=== PATIENT | female | born 1940 | race Caucasian/White ===

== ENCOUNTER 2022-01-18 14:19 | Outpatient (REF) | payer MEDICARE, OTHER, SELFPAY ==
--- NOTE | ~2022-01-18 | MM_ITS ---
EXAMINATION: BONE DENSITOMETRY CLINICAL INDICATION: Encounter for screening for osteoporosis. Postmenopausal. COMPARISON: None (current study represents initial baseline exam). TECHNIQUE: Using a [employer] DXA System (software version: 13.1) manufactured by [employer], dual-energy x-ray absorptiometry was performed of the lumbar spine and left hip. The images are of good technical quality. Summary results are attached. FINDINGS: AP SPINE L1-L4 (excluding L3): The data of L1-L4 has been changed to exclude the L3 vertebral body, because degenerative changes at this level may cause overestimation of lumbar spine density. BMD 1.924 g/cm2, Z-score 7.5, T-score 6.3, normal. LEFT FEMUR, NECK: BMD 1.085 g/cm2, Z-score 2.2, T-score 0.3, normal. LEFT FEMUR, TOTAL: BMD 1.196 g/cm2, Z-score 3.2, T-score 1.5, normal. IDENTIFIED RISK FACTORS: History of fracture, (adult). Menopause. Tobacco user, (current smoker). HISTORY OF FRACTURE: Elbow. MEDICATIONS: None listed. MM/XR DEXA axial skeleton IMPRESSION: 1. DIAGNOSIS: Normal bone density based on the lowest T-score value of 0.3 in the femoral neck applying World Health Organization criteria. 2. 10-YEAR FRACTURE RISK PREDICTION, FRAX: According to the guidelines, FRAX calculation should only be performed on patients in the osteopenia bone density category. Therefore, FRAX was not performed on this patient. 3. Treatment Recommendations: NOF guidelines recommend consideration for treatment in postmenopausal women and men age 50 and older presenting with the following: -A hip or vertebral (clinical or morphometric) fracture. -T-score less than or equal to -2.5 at the femoral neck or spine after appropriate evaluation to exclude secondary causes. -Low bone mass at the hip or spine and a 10-year fracture probability by FRAX of greater than or equal to 3% for hip fracture or greater than or equal to 20% for major osteoporotic fracture based on the [place] adapted WHO algorithm. 4. Other Recommendations: All treatment decisions require clinical judgment and consideration of individual patient factors, including patient preferences, comorbidities, previous drug use, risk factors not captured in the FRAX model (e.g. frailty, falls, vitamin D deficiency, increased bone turnover, interval significant decline in bone density) and possible under or overestimation of fracture risk by FRAX. FUTURE SCAN RECOMMENDATION: People with diagnosed cases of osteoporosis or at high risk for fracture should have regular bone mineral density tests. For patients eligible for Medicare, routine testing is allowed once every 2 years. The testing frequency can be increased to one year for patients who have rapidly progressing disease, those who are receiving or discontinuing medical therapy to restore bone mass, or have additional risk factors.
== END 2022-01-18 14:20 | disposition home or self-care (01) ==
LOC: HO.MAMMO 14:19
PROVIDERS: PCP Nurse Practitioner Family; Visit Provider Nurse Practitioner Family
DX: Z13.820 Encounter for screening for osteoporosis (principal); N92.1 Excessive and frequent menstruation with irregular cycle; Z78.0 Asymptomatic menopausal state; F17.200 Nicotine dependence, unspecified, uncomplicated
CPT/HCPCS: 77080

== ENCOUNTER 2022-03-07 11:17 | Outpatient (REF) | payer MEDICARE, OTHER, SELFPAY ==
--- NOTE | ~2022-03-07 | XR_ITS ---
EXAMINATION: XR KNEE, LEFT CLINICAL INFORMATION: Pain left knee. No known injury. COMPARISON: None. TECHNIQUE: 4 views of the left knee. FINDINGS: There is loss of medial and patellofemoral compartment joint space with periarticular spurring. There is no visible acute fracture, dislocation or subluxation seen. No abnormal joint effusion seen. Incidental finding of diffuse thickening involving the medial cortex of fibula. This could be from stress fracture or cortical hyperostosis.. XR/XR knee LT 2V IMPRESSION: Mild degenerative arthritic changes medial and patellofemoral compartments with periarticular spurring. No acute fracture or joint effusion seen. Nonspecific observation of diffuse thickening of medial fibular cortex throughout its entire length question stress fracture versus hyperostosis.
== END 2022-03-07 11:18 | disposition home or self-care (01) ==
LOC: HO.XRAY 11:17
PROVIDERS: PCP Nurse Practitioner Family; Visit Provider Nurse Practitioner Family
DX: M25.562 Pain in left knee (principal)
CPT/HCPCS: 73560

== ENCOUNTER 2022-03-30 08:03 | Outpatient (REF) | payer MEDICARE, OTHER, SELFPAY ==
--- NOTE | ~2022-03-30 | XR_ITS ---
EXAMINATION: XR KNEES, BILATERAL XR KNEE, LEFT CLINICAL INFORMATION: Pain COMPARISON: 03/07/2022. TECHNIQUE: Standing image of the knees and detailed imaging of the left knee 2 views. FINDINGS: The standing image of the knees demonstrates medial compartment joint space loss on the right and left. Appears moderate. Marginal osteophytes are noted. The lateral joint spaces are fairly well preserved. Tibial spine spurring is seen. Imaging of the left knee shows patellofemoral spurring. No significant effusion is present. The patella Is fairly well seated on the sunrise image. XR/XR knee LT 2V IMPRESSION: Degenerative changes [id number] left knee. There is also some degeneration on the right on the standing image.
--- NOTE | ~2022-03-30 | XR_ITS ---
EXAMINATION: XR KNEES, BILATERAL XR KNEE, LEFT CLINICAL INFORMATION: Pain COMPARISON: 03/07/2022. TECHNIQUE: Standing image of the knees and detailed imaging of the left knee 2 views. FINDINGS: The standing image of the knees demonstrates medial compartment joint space loss on the right and left. Appears moderate. Marginal osteophytes are noted. The lateral joint spaces are fairly well preserved. Tibial spine spurring is seen. Imaging of the left knee shows patellofemoral spurring. No significant effusion is present. The patella Is fairly well seated on the sunrise image. XR/XR knee standing BI IMPRESSION: Degenerative changes [id number] left knee. There is also some degeneration on the right on the standing image.
== END 2022-03-30 08:04 | disposition home or self-care (01) ==
LOC: HO.HOSX 08:03
PROVIDERS: Visit Provider Orthopaedic Surgery
DX: M17.12 Unilateral primary osteoarthritis, left knee (principal)
CPT/HCPCS: 73560; 73565; 99202

== ENCOUNTER 2022-04-10 07:30 | Outpatient (REF) | payer MEDICARE, OTHER, SELFPAY ==
[2022-04-10 08:56] LABS: MANUAL DIFF FLAG NO
[2022-04-10 09:10] LABS: Basophils Percent Auto 0.4 % (0-2); Eosinophils Absolute Auto 0.3 X10*3/uL (0.0-0.4); Eosinophils Percent Auto 4.3 % (0-4); Hematocrit 40.6 % (37.0-47.0); Hemoglobin 12.9 g/dl (12.0-16.0); Imm Gran Abs Auto 0.04 X10*3/uL (0.00-0.03); Imm Gran Pct Auto 0.5 % (0.0-0.4); Lymphocytes Absolute Auto 3.2 X10*3/uL (1.2-4.9); Lymphocytes Percent Auto 40.7 % (20-40); Mean Corpuscular HGB Conc 31.8 g/dl (31.0-35.0); Mean Corpuscular Hemoglobin 28.1 pg (27.0-33.0); Mean Corpuscular Volume 88.5 fL (80.0-98.0); Mean Platelet Volume 10.6 fL (9.4-12.3); Monocytes Absolute Auto 0.7 X10*3/uL (0.1-1.2); Monocytes Percent Auto 8.4 % (2-11); Neutrophils Absolute Auto 3.6 x10*3/uL (2.0-8.3); Neutrophils Percent Auto 45.7 % (45-73); Platelet Count 232 X10*3/uL (160-400); Red Blood Count 4.59 X10*6/uL (4.20-5.50); Red Cell Distribution Width 14.4 % (11.0-16.0); White Blood Count 7.8 X10*3/uL (4.8-10.8)
[2022-04-10 09:38] LABS: Alanine Aminotransferase 17 U/L (0-31); Albumin Level 3.9 g/dL (3.5-5.0); Alkaline Phosphatase 41 U/L (39-117); Anion Gap 12 (12-20); Aspartate Amino Transferase 17 U/L (5-31); Bilirubin Total 0.5 mg/dL (0.0-1.0); Blood Urea Nitrogen 15 mg/dL (9-16); Calcium 8.9 mg/dL (8.4-10.2); Carbon Dioxide 26 mmol/L (22-29); Chloride 108 mmol/L (96-108); Cholesterol 199 mg/dL; Estimated Glomerular Filt Rate > 60; Glucose Random 115 mg/dL (60-115); HDL Cholesterol 44 mg/dL; LDL Cholesterol Calculated 119 mg/dl; Potassium 4.1 mmol/L (3.3-5.1); Sodium 142 mmol/L (135-145); Triglycerides 180 mg/dL
[2022-04-10 09:59] LABS: Vitamin D 25-OH Total 19.2 ng/mL (>30)
[2022-04-10 11:04] LABS: Estimated Average Glucose 131 mg/dL; Hemoglobin A1c % 6.2 %
[2022-04-10 11:18] LABS: Creatinine Urine 105.46 mg/dL; Microalbum/Creatinine Ratio Ur 24.6 ug/mg cr
[2022-04-10 11:19] LABS: Folate 12.5 ng/mL (> or = 4.0); Vitamin B12 259 pg/mL (200-900)
== END 2022-04-10 07:31 | disposition home or self-care (01) ==
LOC: HO.LAB 07:30
PROVIDERS: Nurse Practitioner Family; Visit Provider Nurse Practitioner Family
DX: Z13.29 Encounter for screening for other suspected endocrine disorder (principal); E11.9 Type 2 diabetes mellitus without complications; I10 Essential (primary) hypertension; Z13.220 Encounter for screening for lipoid disorders
CPT/HCPCS: 36415; 80053; 80061; 82043; 82306; 82607; 82746; 83036; 84443; 85025

== ENCOUNTER 2022-05-16 22:45 | Emergency (ER) | payer MEDICARE, OTHER, SELFPAY ==
--- NOTE | ~2022-05-16 | XR_ITS ---
EXAMINATION: XR KNEE, LEFT CLINICAL INFORMATION: Pain status post fall COMPARISON: Bilateral knee 03/24/2022 TECHNIQUE: Four views of the left knee. FINDINGS: Mild tricompartmental degenerative changes are seen with narrowing of the medial compartment. Posterior patellar osteophytes are seen. No joint effusion is seen. No fractures. No chondrocalcinosis. XR/XR knee LT 4V IMPRESSION: Mild tricompartmental degenerative changes
[2022-05-16 22:52] VITALS: BP 158/90; PULSE 75; O2SAT 99
[2022-05-16 22:55] VITALS: BP 171/74; PULSE 70; RESP 18; TEMP 36.8; O2SAT 93; BMI 30.2
--- NOTE | 2022-05-16 22:55 | ED_ITS ---
HPI - Extremity Injury (Lower) General Chief Complaint: Extremity Injury, Lower Stated Complaint: left leg pain after fall Time Seen by Provider: 05/16/22 22:55 Source: patient Mode of arrival: EMS Limitations: no limitations History of Present Illness HPI Narrative: Patient accidentally kicked a water bottle instead of soccer ball at approximately 15:00 today with her right foot fell on her buttocks to state her left knee complaining of pain in the left knee unable to put pressure or walk. Patient does have chronic pain in the knees Related Data Home Medications Medication Instructions Recorded Confirmed betamethasone, augmented 0.05 % topical 12/02/21 04/05/22 topical ointment vitamins A,C,H-sqgi-vjicbo 14,320 1 cap PO BID 12/02/21 04/05/22 unit-226 mg-200 unit capsule (PreserVision AREDS) Previous Rx's Medication Instructions Recorded albuterol sulfate 90 mcg/actuation 2 inh inhalation Q4-6H #8.5 grams 03/07/22 aerosol inhaler lisinopril 5 mg tablet 5 mg PO DAILY #90 tabs 03/07/22 metformin 500 mg tablet 500 mg PO BID 90 days #180 tabs 03/07/22 cholecalciferol (vitamin D3) 50 50 mcg PO DAILY #90 tabs 04/11/22 mcg (2,000 unit) tablet ibuprofen 600 mg tablet 600 mg PO Q6H PRN pain #30 tabs 05/17/22 Allergies Allergy/AdvReac Type Severity Reaction Status Date / Time codeine Allergy Hallucinati Verified 05/16/22 23:01 ons meperidine [From Demerol] Allergy Hallucinati Verified 05/16/22 23:01 ons Iodinated Contrast Media AdvReac Anxiety Verified 05/16/22 23:01 [IV Contrast Dye] Review of Systems Review of Systems: Yes all other systems are reviewed and are negative [facility] Past Medical History Medical History Chondroma COVID-19 virus infection (~03/15/22) Encounter to establish care Surgical History History of cataract surgery History of cholecystectomy History of eye surgery Social History Social History Housing: Assisted Living Facility Patient Tobacco Use Status: Current everyday Tobacco user Tobacco use type: Cigarette Cigarettes Per Day: 3 e-Cigarette/Vaping Use: Never Used Second Hand Smoke Exposure: No Advance Directives: No Advance Directives Information Provided: No service: No Current occupational status: retired Cognitive needs: No Hearing needs: Yes ( having trouble hearing) Vision needs: Yes Physical Exam Vital Signs: Vital Signs: Last Vital Signs Temp 98.2 F 05/16/22 22:55 Pulse 70 05/16/22 22:55 Resp 18 05/16/22 22:55 BP 171/74 H 05/16/22 22:55 Pulse Ox 93 05/16/22 22:55 O2 Del Method 05/16/22 22:55 BMI result Body Mass Index 30.2 Appearance: Alert. Oriented X3. No acute distress. Eyes: PERRLA, No Nystagmus ENT: Pharynx normal. Oral Mucosa moist Neck: Normal inspection. Neck supple. CVS: Normal heart rate and rhythm. Pulses normal. Respiratory: No respiratory distress. Equal air entry bilateral, no wheezing/rales/rhonchi Abdomen: Soft and nontender. Bowel sounds are present, Skin: Skin warm and dry. Normal skin color. Normal skin turgor. Extremities: No lower extremity edema. No calf tenderness diffuse tenderness le ft knee with slight effusion neurovascular intact Audrey sign positive left lateral meniscal anterior drawer sign negative Neuro: Oriented X 3. No motor deficit. No sensory deficit. MDM - Extremity Injury (Lower) MDM Narrative Medical decision making narrative: 0040 Patient with likely left lateral meniscal strain able to ambulate after knee immobilizer using crutches will discharge patient home advised to rest left knee follow-up with orthopedic Discharge Plan Discharge Clinical Impression: Acute lateral meniscal injury of left knee Patient Disposition: Home, Self-Care Instructions: Knee Sprain (ED) Additional Instructions: Use knee immobilizer for support use walker or cane for ambulation Ibuprofen for pain Follow-up with orthopedics if not better in 2 weeks Prescriptions: New ibuprofen 600 mg tablet 600 mg PO Q6H PRN (Reason: pain) Qty: 30 0RF No Action cholecalciferol (vitamin D3) 50 mcg (2,000 unit) tablet 50 mcg PO DAILY Qty: 90 0RF albuterol sulfate 90 mcg/actuation HFA aerosol inhaler 2 inh inhalation Q4-6H Qty: 8.5 2RF lisinopril 5 mg tablet 5 mg PO DAILY Qty: 90 0RF metformin 500 mg tablet 500 mg PO BID 90 Days Qty: 180 0RF PreserVision AREDS [id number]-[id number] capsule 1 cap PO BID betamethasone, augmented 0.05 % ointment topical Referrals: Natanael Coronel MD [Physician] - 2 weeks Interventions: ED Discharge Assessment Last Done: 05/17/22 00:28
== END 2022-05-17 00:44 | disposition home or self-care (01) ==
PROVIDERS: Emergency Provider Internal Medicine; PCP Nurse Practitioner Family
DX: S83.282A Other tear of lateral meniscus, current injury, left knee, initial encounter (principal); Y29.XXXA Contact with blunt object, undetermined intent, initial encounter; Y93.9 Activity, unspecified; Y92.9 Unspecified place or not applicable; Y99.9 Unspecified external cause status; Z79.899 Other long term (current) drug therapy; F17.210 Nicotine dependence, cigarettes, uncomplicated; Z71.6 Tobacco abuse counseling
CPT/HCPCS: 73564; 99282; 99283

== ENCOUNTER → 2022-06-07 10:36 | Outpatient (BNVA) | payer MEDICARE, OTHER, SELFPAY | PROVIDERS: PCP Nurse Practitioner Family; Visit Provider Physician Assistant | DX: M17.12 Unilateral primary osteoarthritis, left knee (principal) | CPT/HCPCS: 20610; 99212; J1020 ==

== ENCOUNTER 2022-07-11 13:00 | Outpatient (RCR) | payer MEDICARE, OTHER, SELFPAY ==
[2022-06-16 13:06] VITALS: BP 131/61; PULSE 89
--- NOTE | 2022-06-16 13:59 | MHC.PT.EP ---
[facility] [place] Office [place] Office [place] Office [address] [phone] F: [phone] F: [phone] F: [phone] F: [phone] Physical Therapy Plan of Care Date of Evaluation: Date of Surgery: NA Diagnosis: Unilateral primary OA, L knee Assessment: Nicky is a 82 year old female who is referred to PT for unilateral primary OA of L knee . She reports of having sudden onset of knee pain about 3 months back following a sudden pop in her knee. She was initially diagnosed with knee OA and was given a brace. She was making good progress until 1 month back when she fell on her L knee and re-injured it 2 weeks back while trying push a heavy table. On PT examination she presented with TTP over lateral aspect of distal hamstring, 1/10 pain with sit to stand and pivoting L knee, decreased L knee ROM, decreased L LE strength, altered posture and gait. She is independent with ADLS however is careful with them to avoid any pain or re-injury. She enjoys swimming as well. She would benefit from skilled PT to address the aforementioned impairments and improve tolerance to functional activities. Frequency and Duration: The patient will be seen 2/week for 4 weeks Short Term Goals: 1. Pt will have 0/10 which will help her walk, sit to stand and stand without brace in 2 weeks. 2. Pt will be able to move her knee through full plane of motion without pain which will help her negotiate stairs in 3 weeks. Cadastral Engineer Goals: 1. Pt will demonstrate an increase in muscle strength by 1 grade which will enable her to return to walking without AD in 4 weeks. 2. Pt will be independent with HEP for symptom management and maintenance following d/c in 4 weeks. Treatment Plan: Modalities to reduce pain, spasms and effusion. Manual therapy to restore motion and function. Therapeutic exercise to improve strength and flexibility. Neuromuscular re-education for posture and balance. Therapeutic activities to return to functional activities of daily living. Electronically signed by: Martha Martinez PT DPT Please sign and return to therapist. Thank you for your referral.
--- NOTE | 2022-07-17 10:09 | MHC.PT.DC ---
[facility] [place] Office [place] Office [place] Office [address] [phone] F: [phone] F: [phone] F: [phone] F: [phone] Physical Therapy Discharge Report Diagnosis: Unilateral primary OA, L knee Date of Surgery: NA Date of Evaluation: 06/16/22 Date of Discharge: 07/17/22 Treatments to Date: 9 Cancellations to Date: 0 No Shows to Date: 0 Discharge Status: Achieved Goals Improved Function Independent with HEP Discharge Summary: Nicky has attended 9 PT visits. She has improved significantly and has achieved all goals set for her. She is therefore being d/c from PT. Electronically signed by: Martha Martinez, PT DPT Please sign and return to therapist. Thank you for your referral.
== END 2022-07-17 10:08 | disposition home or self-care (01) ==
LOC: HO.PT 13:00
PROVIDERS: PCP Nurse Practitioner Family; Visit Provider Physician Assistant
DX: M17.12 Unilateral primary osteoarthritis, left knee (principal)
CPT/HCPCS: 97110; 97161; 97530

== ENCOUNTER 2023-08-02 10:31 | Outpatient (AMB) | payer MEDICARE, OTHER, SELFPAY ==
--- NOTE | 2023-08-02 10:24 | A.OFFVIS_ITS ---
Intake Vital Signs 08/02/23 10:35 Height 5 ft 5 in Weight 190 lb BMI 31.6 Intake Visit Reasons: new Prob- Right knee pain Intake Note: Nicky is an 83 year old female who presents today for a new problem visit with complaints of right knee pain. Patient reports that this knee has been painful for about 8 weeks now. She reports that she was mopping the floor and has had pain the knee ever since. No previous therapies. She is taking Tylenol which does help mildly, but she only takes it at night. She has been using a rollator at home as she feels that it is helpful for her balance. Allergies codeine Allergy (Verified 08/02/23 10:39) Hallucinations meperidine [From Demerol] Allergy (Verified 08/02/23 10:39) Hallucinations Iodinated Contrast Media [IV Contrast Dye] Adverse Reaction (Verified 08/02/23 10:39) Anxiety HPI new Prob- Right knee pain HPI Details Nicky Eden)is an 83 year old woman with bilateral knee OA, who presents with complaints of right knee pain. She has pain with daily activity that radiates from her knee and into her leg muscles, along with a clicking and pulling sensation. She denies any numbness, tingling, or burning. She says her pain began ~2 months ago while she was mopping her floor, she says she pivoted on her heel and this caused her pain. She denies any prior treatment for her right knee and finds some relief from Tylenol, which she takes only at night. She has been using a walker at home and says this has been helpful for her balance. [facility] Medical History COVID-19 virus infection (~03/15/22) Chondroma Encounter to establish care Surgical History History of cataract surgery History of eye surgery History of cholecystectomy Social History Housing: Assisted Living Facility Patient Tobacco Use Status: Current everyday Tobacco user Tobacco use type: Cigarette Cigarettes Per Day: 3 e-Cigarette/Vaping Use: Never Used Second Hand Smoke Exposure: No service: No Current occupational status: retired Cognitive needs: No Hearing needs: Yes ( having trouble hearing) Vision needs: Yes Review of Systems Const All systems reviewed & are unremarkable except as noted in HPI and below Physical Exam Vital Signs: BMI result Body Mass Index 31.6 Const General: no acute distress, alert and awake Orientation/consciousness: patient oriented x3 HEENT Head: Yes normocephalic and Yes atraumatic Eyes EOM: EOMs intact bilaterally Resp Effort & Inspection: normal respiratory effort and able to speak in complete sentences Cardio Jugular venous distension: no JVD Skin General skin exam: turgor normal Rashes: no rashes Neuro General: patient oriented x3 Extrem Other: Right Knee: Antalgic gait TTP MJA bilaterally Psych Appearance: grossly normal Affect: normal affect Attitude: cooperative Office Procedures Joint Injection/Drain Joint Injection/Drain Details: Injected 1 mL of Decadron and 3 mL 1% lidocaine and 3 mL of 0.25% Marcaine. Site was prepped using aseptic technique. Patient tolerated the procedure well. Primary Site: right knee Approach Used: anterolateral Coding 14771 - Large joint Procedure code (CPT) selection complete Results Reviewed Results Reviewed: 08/02/23 10:51 BUPivacaine MPF 0.25 % [Sensorcaine-MPF 0.25% 10 ML] 10 ml .ROUTE .STK-MED ONE Lidocaine HCl 2 % MPF [Xylocaine 2 % MPF] 5 ml .ROUTE .STK-MED ONE dexAMETHasone sod phosphate [Decadron] 4 mg .ROUTE .STK-MED ONE I personally reviewed relevant radiographs. Moderate-severe bilateral knee OA Assessment & Plan Assessment & Plan (1) Osteoarthritis of right knee: Code(s): M17.11 - Unilateral primary osteoarthritis, right knee Plan: This is an 83 year old woman with right knee mod-severe OA. She has pain with daily activity, and ambulates with antalgia. Her pain radiates into her leg but she denies any symptoms of radiculopathy. She denies any prior treatment and ambulates with an assistive walker at home. I discussed her diagnosis and treatment options. I injected her right knee today, which she tolerated well. She can follow up prn. (2) Diabetes mellitus: Code(s): E11.9 - Type 2 diabetes mellitus without complications Plan: I discussed the hyperglycemic effects of steroid injections (3) Degenerative arthritis of left knee: Code(s): M17.12 - Unilateral primary osteoarthritis, left knee Plan: No complaints today. Plan Scribed for Natanael Coronel MD by Pascual Almendarez, spanish medical interpreter, on 08/02/23 at 10:50 AM, EST. Coding Level of Care Code Est Pt Level 4 (02465) Diagnoses Osteoarthritis of right knee M17.11 Diabetes mellitus E11.9 Degenerative arthritis of left knee M17.12 CPT Codes Coding - 93031 Large joint: 37223 - Large joint ([id number])
[2023-08-02 10:35] VITALS: BMI 31.6
== END 2023-08-02 11:05 | disposition home or self-care (01) ==
PROVIDERS: PCP Nurse Practitioner Family; Visit Provider Orthopaedic Surgery
DX: M17.0 Bilateral primary osteoarthritis of knee (principal); E11.9 Type 2 diabetes mellitus without complications
CPT/HCPCS: 20610; 99214

== ENCOUNTER → 2023-08-02 10:31 | Outpatient (BNVA) | payer MEDICARE, OTHER, SELFPAY | PROVIDERS: PCP Nurse Practitioner Family; Visit Provider Orthopaedic Surgery | DX: M17.0 Bilateral primary osteoarthritis of knee (principal); E11.9 Type 2 diabetes mellitus without complications | CPT/HCPCS: 20610; 99212; J1100 ==

== ENCOUNTER 2023-08-24 11:04 | Outpatient (AMB) | payer MEDICARE, OTHER, SELFPAY ==
[2023-08-24 10:54] VITALS: BP 142/70; PULSE 85; O2SAT 95; BMI 31.3
--- NOTE | 2023-08-24 10:54 | AM.OFFVISMDC ---
Intake Vital Signs 08/24/23 10:54 Height 5 ft 5 in Weight 188 lb 0.6 oz BMI 31.3 BP 142/70 H Blood Pressure Location Lt brachial Position Sitting Pulse 85 Pulse Source Pulse Oximeter Pulse Oximetry (%) 95 Oxygen Delivery Method Room Air Intake Visit Reasons: SAWV Intake Note: Patient is here for an Annual Wellness Visit. Allergies codeine Allergy (Verified 08/24/23 11:33) Hallucinations meperidine [From Demerol] Allergy (Verified 08/24/23 11:33) Hallucinations Iodinated Contrast Media [IV Contrast Dye] Adverse Reaction (Verified 08/24/23 11:33) Anxiety Medication List - Last Reconciled 08/24/23 by ALVARO Márquez albuterol sulfate 90 mcg/actuation 2 inhalations inhalation Q4-6H betamethasone, augmented 0.05 % topical blood sugar diagnostic ([employer] Ultra Test strips) 2x day cane Quad cane lisinopril 5 mg PO DAILY metformin 500 mg PO BID 90 days Fall Risk Assessment Fall risk assessment: No Falls in past year Date Fall Risk Assessed: 08/24/23 HPI SAWV HPI Details Patient is an 83-year-old female who presents today for subsequent wellness visit. Patient did have a normal bone density screen 01/2022. Today we discussed patient's need for mammogram and tetanus vaccine. Patient would like to hold off on tetanus vaccine. Patient reports history of pneumonia vaccine after age 65. [place] of care was reviewed with the patient and she was provided with a screening schedule. MOLST form is on file and patient will provide office with a healthcare proxy form. [facility]MERLY [facility] Medical History COVID-19 virus infection (~03/15/22) Chondroma Encounter to establish care Surgical History History of cataract surgery History of eye surgery History of cholecystectomy Social History Housing: Assisted Living Facility Patient Tobacco Use Status: Current everyday Tobacco user Tobacco use type: Cigarette Cigarettes Per Day: 3 e-Cigarette/Vaping Use: Never Used Second Hand Smoke Exposure: No service: No Current occupational status: retired Cognitive needs: No Hearing needs: Yes ( having trouble hearing) Vision needs: Yes Questionnaire Medicare Wellness Checkup What is your age?: 80 or older (82) What gender do you identify with?: female During the past 4 weeks, how much have you been bothered by emotional problems such as feeling anxious, depressed, irritable, sad or downhearted, and blue?: slightly During the past 4 weeks, has your physical & emotional health limited your social activities with family, friends, neighbors, or groups?: not at all During the past 4 weeks, how much bodily pain have you generally had?: mild pain During the past 4 weeks, was someone available to help you if you needed & wanted help?: yes, as much as I wanted During the past 4 weeks, what was the hardest physical activity you could do for at least 2 minutes?: heavy Can you get to places out of walking distance without help? (For eg., can you travel alone on buses, taxis or drive your car?): Yes Can you go shopping for groceries or clothes without someone's help?: Yes Can you prepare your own meals?: Yes Can you do your housework without help?: Yes Because of any health problems, do you need the help of another person with your personal care needs such as eating, bathing, dressing or getting around the house?: No Can you handle your own money without help?: Yes During the past 4 weeks, how would you rate your health in general?: good During the past 4 weeks how have things been going for you?: good & bad parts about equal Are you having difficulties driving your car?: no Do you always fasten your seat belt when you are in a car?: yes, usually During past 4 weeks, have you been bothered by the following: never: Falling or dizzy when standing up, Sexual problems?, Trouble eating well?, Teeth or denture problems? and Problems using the telephone? and sometimes: Tiredness or fatigue? Have you fallen 2 or more times in the past year?: No Are you afraid of falling?: Yes Are you a smoker?: yes, and I might quit During the past 4 weeks, how many drinks of wine, beer, or other alcoholic beverages did you have?: 2-5 drinks per week Do you exercise for about 20 minutes 3 or more times a week?: yes, some of the time Have you been given information to help with the following?: no: Hazards in your house that might hurt you? and no: Keeping track of your medications? How often do you have trouble taking medicines the way you have been told to take them?: I always take medicine as prescribed How confident are you that you can control & manage most of your health problems?: very confident What is your race?: White Mini Mental State Exam (MMSE) Orientation What is the (year) (season) (date) (day) (month)?: year, season, date, day and month Score Score: 5 Activity of Daily Living Bathing - sponge bath, tub bath or shower: receives no assistance (gets in/out by self, if usual bathing means Dressing - getting clothes from closets & drawers, including inner/outer garments & fasteners.: gets clothes & gets completely dressed without help Toileting - going to the 'toilet room' for urine/bowel elimination & cleaning self/arranging clothes: goes to toilet room, cleans self, arranges clothes without help Transfer: moves in & out of bed and chair without help (may use support object) Continence: controls urination/bowel movements completely by self Feeding: feeds self without help Total Score: 0 Information obtained from: patient Using telephone: independent Traveling: independent Shopping: independent Preparing meals: independent Housework: independent Taking medicine: independent Managing money: independent PHQ-9 Over the last 2 weeks, how often have you been bothered by any of the following problems? 1. Little interest or pleasure in doing things: not at all 2. Feeling down, depressed, or hopeless: not at all 3. Trouble falling or staying asleep, or sleeping too much: several days 4. Feeling tired or having little energy: several days 5. Poor appetite or overeating: not at all 6. Feeling bad about yourself - or that you are a failure or have let yourself or your family down: not at all 7. Trouble concentrating on things, such as reading the newspaper or watching television: not at all 8. Moving or speaking so slowly that other people could have noticed. Or the opposite - being so fidgety or restless that you have been moving around a lot more than usual: not at all 9. Thoughts that you would be better off or of hurting yourself in some way: not at all Total score: 2 Depression Screening Interpretation: Negative Depression Screening Done: Yes 87643 - PHQ-9 Billing: Yes Source: Developed by Drs. Trip Schneider, Claudia Hernandez, Dante Milan and colleagues, with an educational mohamud from [employer]. MELINDA-7 AMB Questionnaire MELINDA-7 Date MELINDA - 7 assessed: 12/20/22 Source: Developed by Claudia Montoya, Dante Milan and colleagues, with an educational mohamud from [employer]. Thrive Questionnaire Date Thrive assessed: 12/20/22 AUDIT C Alcohol Use Questionnaire (AUDIT-C) 1. How often do you have a drink containing alcohol?: Monthly or less 2. How many drinks containing alcohol do you have on a typical day when you are drinking?: 1 or 2 3. How often do you have six or more drinks on one occasion?: Never Total Score: 1 Score Reviewed/Action Taken: No Physical Exam Vital Signs: Last Vital Signs Pulse 85 08/24/23 10:54 BP 142/70 H 08/24/23 10:54 Pulse Ox 95 08/24/23 10:54 Oxygen Delivery Method Room Air 08/24/23 10:54 BMI result Body Mass Index 31.3 Const General: cooperative and no acute distress Orientation/consciousness: patient oriented x3 HEENT Other: Whisper test: fail Neuro Other: Balance: Normal - patient ambulates with a cane Get up and walk: unable to Romberg: negative Tandem gait: unable to General: patient oriented x3 Results AMB Hemoglobin A1c AMB Hemoglobin A1c 6.2 % Last Edit by HILARIA Zavala on 08/24/23 11:22 Results Reviewed Results Reviewed: Laboratory Last Values Hgb A1c (Clinic) 6.2 % (4.0-6.0) H 08/24/23 11:17 Assessment & Plan Assessment & Plan (1) Hyperlipidemia: Code(s): E78.5 - Hyperlipidemia, unspecified Plan: Not on medication - patient reports history of being on statin in the past and she did have muscle aches LDL 117 04/2023, goal less than 110, declines starting medication for cholesterol Low-cholesterol diet Continue to monitor (2) Screening for breast cancer: Code(s): Z12.39 - Encounter for other screening for malignant neoplasm of breast (3) Degenerative arthritis of left knee: Code(s): M17.12 - Unilateral primary osteoarthritis, left knee Plan: Continue to follow-up with [facility] (4) Psoriasis: Code(s): L40.9 - Psoriasis, unspecified Plan: Continue betamethasone cream (5) IBS (irritable bowel syndrome): Comment: controlled with diet Code(s): K58.9 - Irritable bowel syndrome without diarrhea Plan: Controlled with diet (6) Intermittent asthma: Code(s): J45.20 - Mild intermittent asthma, uncomplicated Plan: Stable Continue albuterol inhaler as needed (7) Diabetes mellitus: Code(s): E11.9 - Type 2 diabetes mellitus without complications Plan: A1c 6.2 today Continue metformin 500 mg b.i.d. Low-carbohydrate diet Scheduled for diabetic eye exam 09/2023 (8) Macular degeneration of right eye: Comment: getting shots q6-[address] Mazariegos [facility] Code(s): H35.30 - Unspecified macular degeneration Plan: Continue to follow-up with ophthalmology as scheduled (9) Essential hypertension: Code(s): I10 - Essential (primary) hypertension Plan: Continue lisinopril 5 mg daily Low-sodium diet Goal BP equal or less than 140/90 (10) Adult general medical exam: Comment: Td declined. PNA Iz after age 65 per pt. Code(s): Z00.00 - Encounter for general adult medical examination without abnormal findings Orders: Orders AMB Hemoglobin A1c Today E11.9 - Type 2 diabetes mellitus without complications MM tomosynthesis screening BI Today Z12.31 - Encounter for screening mammogram for malignant neoplasm of breast Microalbumin, Random (w Creat) 4 Months E11.9 - Type 2 diabetes mellitus without complications Lipid Panel 4 Months E11.9 - Type 2 diabetes mellitus without complications Comprehensive [place]. Panel Fast 4 Months E11.9 - Type 2 diabetes mellitus without complications Medications: Changed From betamethasone, augmented 0.05 % topical L40.9 - Psoriasis, unspecified To betamethasone, augmented 0.05 % 1 appl topical DAILY PRN 15 grams 0RF rash L40.9 - Psoriasis, unspecified Quality Reporting (2019) Fall Risk Screening ([facility] 139) Last assessed Fall Risk: 08/24/23 Fall risk assessment: No Falls in past year Depression/Bipolar (159/160/161/177) PHQ-9: Total score: 2 Coding Level of Care Code Medicare Subsequent (G0439) Diagnoses Hyperlipidemia E78.5 Screening for breast cancer Z12.39 Degenerative arthritis of left knee M17.12 Psoriasis L40.9 IBS (irritable bowel syndrome) K58.9 Intermittent asthma J45.20 Diabetes mellitus E11.9 Macular degeneration of right eye H35.30 Essential hypertension I10 Adult general medical exam Z00.00 CPT Codes Advance Care Planning - Advance Care Planning discussion: On file, no changes ([id number]) Advance Care Planning - Time spent: 1-15 minutes, on File ([id number]) Advance Care Planning Advance Care Planning discussion: On file, no changes Date of discussion: 08/24/23 Who was present: pt and faculty criminal justice Forms completed: None Time spent: 1-15 minutes, on File Actual minutes spent: 1 Did not discuss due to Cultural/Spiritual beliefs: No
== END 2023-08-24 11:51 | disposition home or self-care (01) ==
PROVIDERS: PCP Nurse Practitioner Family; Visit Provider Nurse Practitioner Family
DX: Z00.00 Encounter for general adult medical examination without abnormal findings (principal); E11.9 Type 2 diabetes mellitus without complications; E78.5 Hyperlipidemia, unspecified; M17.12 Unilateral primary osteoarthritis, left knee; L40.9 Psoriasis, unspecified; K58.9 Irritable bowel syndrome, unspecified; J45.20 Mild intermittent asthma, uncomplicated; H35.30 Unspecified macular degeneration; I10 Essential (primary) hypertension
CPT/HCPCS: 1123F; 83036; G0439

== ENCOUNTER → 2023-09-12 14:15 | Outpatient (BNV) | payer MEDICARE, OTHER, SELFPAY | PROVIDERS: Visit Provider Radiology Diagnostic Radiology | DX: Z12.31 Encounter for screening mammogram for malignant neoplasm of breast (principal) | CPT/HCPCS: 77063; 77067 ==

== ENCOUNTER 2023-09-12 14:27 | Outpatient (REF) | payer MEDICARE, OTHER, SELFPAY ==
--- NOTE | ~2023-09-12 | MM_ITS ---
EXAMINATION: MM SCREENING DIGITAL BREAST TOMOSYNTHESIS, BILATERAL CLINICAL INFORMATION: Screening. Asymptomatic. COMPARISON: Mammography: This study is compared with prior exams dating back to TECHNIQUE: Digital breast tomosynthesis is performed in both the craniocaudal and mediolateral oblique views along with computer-aided detection (CAD). Synthesized 2D images are generated from the tomosynthesis. FINDINGS: The breasts are almost entirely fatty (ACR BI-RADS breast composition Category a). There are no significant masses, abnormal calcifications, or other abnormalities. MM/MM tomosynthesis screening BI IMPRESSION: No mammographic evidence of malignancy. ASSESSMENT: BI-RADS BI-RADS 1 - Negative RECOMMENDATION: Routine annual mammography screening. 1 year F/U This examination should not preclude the clinical evaluation of a suspicious palpable abnormality. This patient's information was entered into a reminder system with a target due date for their next mammogram.
== END 2023-09-12 14:28 | disposition home or self-care (01) ==
LOC: HO.MAMMO 14:27
PROVIDERS: Visit Provider Nurse Practitioner Family
DX: Z12.31 Encounter for screening mammogram for malignant neoplasm of breast (principal)
CPT/HCPCS: 77063; 77067

== ENCOUNTER 2023-12-25 09:47 | Outpatient (AMB) | payer MEDICARE, OTHER, SELFPAY ==
[2023-12-25 09:50] VITALS: BP 132/70; PULSE 80; O2SAT 95; BMI 32.1
--- NOTE | 2023-12-25 09:50 | A.OFFPC_ITS ---
Vital Signs 12/25/23 09:50 Height 5 ft 5 in Weight 193 lb BMI 32.1 BP 132/70 Blood Pressure Location Lt brachial Position Sitting Pulse 80 Pulse Source Pulse Oximeter Pulse Oximetry (%) 95 Oxygen Delivery Method Room Air Intake Visit Reasons: F/u DM, HLD Tattoo And Body Artist Required: No Sharepoint Manager: Not Required per policy Accompanied by: Self / Same As Patient Allergies codeine Allergy (Verified 12/25/23 09:51) Hallucinations meperidine [From Demerol] Allergy (Verified 12/25/23 09:51) Hallucinations Iodinated Contrast Media [IV Contrast Dye] Adverse Reaction (Verified 12/25/23 09:51) Anxiety Medication List - Last Reconciled 12/25/23 by Tee Estrella MD albuterol sulfate 90 mcg/actuation 2 inhalations inhalation Q4-6H betamethasone, augmented 0.05 % 1 appl topical DAILY PRN blood sugar diagnostic ([employer] Ultra Test strips) 2x day cane Quad cane lisinopril 5 mg PO DAILY metformin 500 mg PO BID 90 days Tobacco use date assessed: 12/25/23 Fall risk assessment: No Falls in past year Last assessed Fall Risk: 12/25/23 Dental Screening Dental Screen Date: 12/25/23 Did you have a dental visit in the last 12 months?: Yes Did you have a dental problem in the last 6 months where you did not have access to dental care?: No Was dental information given to patient?: Patient has dentist HPI F/u DM, HLD HPI Details DM HTN and hyperlipidemia; stable; due for labs [facility] Medical History COVID-19 virus infection (~03/15/22) Chondroma Encounter to establish care Surgical History History of cataract surgery History of eye surgery History of cholecystectomy Social History Housing: Assisted Living Facility Patient Tobacco Use Status: Former Tobacco user Tobacco use type: Cigarette Cigarettes Per Day: 3 e-Cigarette/Vaping Use: Never Used Second Hand Smoke Exposure: No service: No Current occupational status: retired Cognitive needs: No Hearing needs: Yes ( having trouble hearing) Vision needs: Yes Questionnaire PHQ-9 Over the last 2 weeks, how often have you been bothered by any of the following problems? 1. Little interest or pleasure in doing things: not at all 2. Feeling down, depressed, or hopeless: not at all 3. Trouble falling or staying asleep, or sleeping too much: not at all 4. Feeling tired or having little energy: not at all 5. Poor appetite or overeating: not at all 6. Feeling bad about yourself - or that you are a failure or have let yourself or your family down: not at all 7. Trouble concentrating on things, such as reading the newspaper or watching television: not at all 8. Moving or speaking so slowly that other people could have noticed. Or the opposite - being so fidgety or restless that you have been moving around a lot more than usual: not at all 9. Thoughts that you would be better off or of hurting yourself in some way: not at all Total score: 0 Depression Screening Interpretation: Negative Depression Screening Done: Yes 09893 - PHQ-9 Billing: Yes Source: Developed by Drs. Trip Schneider, Claudia Hernandez, Dante Milan and colleagues, with an educational mohamud from [employer]. Thrive Questionnaire Date Thrive assessed: 12/25/23 I am a: Patient What is your living situation today?: I have a steady place to live Within the past 12 months, did the food you bought not last and you didn't have the money to get more?: Never true Within the past 12 months, did you worry whether your food would run out before you got money to buy more?: Never true Do you have trouble paying for medicines?: No Do you have trouble getting transportation to medical appointments?: No Do you have trouble paying your heating and electricity bill?: No Do you have trouble taking care of your child, family member or friend?: No Are you currently unemployed and looking for a job?: No Are you interested in more education?: No Please select the resources that you would like help with: None THRIVE Score: 0 AUDIT C Alcohol Use Questionnaire (AUDIT-C) 1. How often do you have a drink containing alcohol?: Monthly or less 2. How many drinks containing alcohol do you have on a typical day when you are drinking?: 1 or 2 3. How often do you have six or more drinks on one occasion?: Never Total Score: 1 Score Reviewed/Action Taken: No MELINDA-7 AMB Questionnaire MELINDA-7 Date MELINDA - 7 assessed: 12/25/23 Feeling nervous, anxious, or on edge: 0 = Not at all Not being able to stop or control worryin = Not at all Worrying too much about different things: 0 = Not at all Trouble relaxin = Not at all Being so restless that it is hard to sit still: 0 = Not at all Becoming easily annoyed or irritable: 0 = Not at all Feeling afraid as if something awful might happen: 0 = Not at all Total MELINDA-7 score (0-4 normal; 5-9 mild; 10-14 moderate; 15-21 severe): 0 Source: Developed by Drs. Trip Schneider, Claudia Hernandez, Dante Milan and colleagues, with an educational mohamud from [employer]. MELINDA-7 Assessment Billing MELINDA-7 Assessment Tool: MELINDA-7 Assessment 59889 Review of Systems Const Denies chills, Denies fatigue, Denies headache(s) and Denies weight loss Eyes Denies change in vision, Denies diplopia and Denies eye pain ENT Denies vertigo, Denies dizziness, Denies headache(s) and Denies nasal discharge Card Denies chest pain, Denies rapid heart rate and Denies dyspnea on exertion Resp Denies chest congestion, Denies cough, Denies pain with cough and Denies dyspnea on exertion GI Denies abdominal pain, Denies hematochezia and Denies change in bowel habits Musc Denies myalgias, Denies arthralgias and Denies joint swelling Skin/Breast Denies lesions and Denies unusual bruising Neuro Denies vertigo, Denies dizziness, Denies headache(s) and Denies focal weakness Endo Denies fatigue Physical exam (Primary Care) Vital Signs: Last Vital Signs Pulse 80 12/25/23 09:50 BP 132/70 12/25/23 09:50 Pulse Ox 95 12/25/23 09:50 Oxygen Delivery Method Room Air 12/25/23 09:50 BMI result Body Mass Index 32.1 Tobacco/Smoking Status: Tobacco use Status Tobacco use date assessed 12/25/23 12/25/23 09:52 Patient Tobacco Use Status Former Tobacco user 12/25/23 10:03 Tobacco use type Cigarette 12/25/23 09:52 e-Cigarette/Vaping Use Never Used 12/25/23 09:52 PHQ-9: PHQ-9 Score PHQ-9: Total score 0 12/25/23 10:06 Depression Screening Interpretation: Negative Thrive Assessment: Date of Thrive Assessment Date Thrive assessed 12/25/23 12/25/23 09:52 Const General: cooperative, healthy appearing and no acute distress Orientation/consciousness: oriented to person, oriented to place and oriented to time HENMT Head: Yes normal to inspection, Yes normocephalic and Yes atraumatic Mouth: Normal oral and palatal mucosa present and tongue normal Throat: Yes posterior oropharynx normal and Yes uvula midline Eyes General: appearance normal, both eyes and all related structures Neck Neck: Yes normal visual inspection, Yes full ROM and Yes no lymphadenopathy Thyroid: Thyroid normal Carotids: normal carotid upstroke Chest Chest palpation & inspection: normal inspection of the chest Resp Effort & Inspection: normal respiratory effort and able to speak in complete sentences Auscultation: clear to auscultation bilaterally Cardio Jugular venous distension: no JVD Palpation: normal PMI Rate: regular rate Rhythm: regular rhythm Heart sounds: S1 normal heart sound present and S2 normal heart sound present GI Inspection: Yes normal to inspection Palpation (GI): Soft to palpation and No hepatosplenomegaly present Auscultation: normal bowel sounds General: Yes no CVA tenderness Back/Spine/Pelvis Back: no CVA tenderness Skin General skin exam: no rashes or lesions noted Neuro General: oriented to person, oriented to place and oriented to time Extrem General: Yes normal to inspection and Yes full ROM Results AMB Hemoglobin A1c AMB Hemoglobin A1c 6.9 % Last Edit by HILARIA Iqbal on 12/25/23 10:06 Results Reviewed Results Reviewed: Laboratory Last Values Hgb A1c (Clinic) 6.9 % (4.0-6.0) H 12/25/23 09:52 Assessment and Plan Assessment & Plan (1) Diabetes mellitus: Code(s): E11.9 - Type 2 diabetes mellitus without complications Plan: do labs (2) Hyperlipidemia: Code(s): E78.5 - Hyperlipidemia, unspecified Plan: do labs (3) Essential hypertension: Code(s): I10 - Essential (primary) hypertension Plan: stable; same rx Orders: Orders Complete Blood Count Auto Diff Today D64.9 - Anemia, unspecified Hemoglobin A1c Today R73.9 - Hyperglycemia, unspecified AMB Hemoglobin A1c Today E11.9 - Type 2 diabetes mellitus without complications Coding Level of Care Code Est Pt Level 4 (13211) Diagnoses Diabetes mellitus E11.9 Hyperlipidemia E78.5 Essential hypertension I10 Additional Codes MELINDA-7 Assessment Billing - MELINDA-7 Assessment Tool: MELINDA-7 Assessment 51631 ([id number])
== END 2023-12-25 10:25 | disposition home or self-care (01) ==
PROVIDERS: PCP Internal Medicine; Visit Provider Internal Medicine
DX: E11.69 Type 2 diabetes mellitus with other specified complication (principal); E78.5 Hyperlipidemia, unspecified; I10 Essential (primary) hypertension
CPT/HCPCS: 83036; 99214

== ENCOUNTER 2024-01-31 09:45 | Outpatient (AMB) | payer MEDICARE, OTHER, SELFPAY ==
[2024-01-31 09:51] VITALS: BP 120/80; PULSE 96; O2SAT 99; BMI 32.4
--- NOTE | 2024-01-31 09:51 | MHC.PC.OV ---
Vital Signs 01/31/24 09:51 Height 5 ft 5 in Weight 195 lb BMI 32.4 BP 120/80 Blood Pressure Location Lt brachial Position Sitting Pulse 96 Pulse Source Pulse Oximeter Pulse Oximetry (%) 99 Oxygen Delivery Method Room Air Intake Visit Reasons: left foot swelling Internet Site Designer Required: No Account Specialist: Not Required per policy Accompanied by: Self / Same As Patient Allergies codeine Allergy (Verified 01/31/24 09:51) Hallucinations meperidine [From Demerol] Allergy (Verified 01/31/24 09:51) Hallucinations Iodinated Contrast Media [IV Contrast Dye] Adverse Reaction (Verified 01/31/24 09:51) Anxiety Medication List - Last Reconciled 01/31/24 by Tee Estrella MD albuterol sulfate 90 mcg/actuation 2 inhalations inhalation Q4-6H betamethasone, augmented 0.05 % 1 appl topical DAILY PRN blood sugar diagnostic (GFRANQ Ultra Test strips) 2x day cane Quad cane lisinopril 5 mg PO DAILY metformin 500 mg PO BID 90 days Tobacco use date assessed: 12/25/23 Fall risk assessment: No Falls in past year Last assessed Fall Risk: 01/31/24 Dental Screening Dental Screen Date: 01/31/24 Did you have a dental visit in the last 12 months?: Yes Did you have a dental problem in the last 6 months where you did not have access to dental care?: No Was dental information given to patient?: Patient has dentist HPI left foot swelling HPI Details has 1 week swelling left lower leg and ankle pain PFSH Medical History COVID-19 virus infection (~03/15/22) Chondroma Encounter to establish care Surgical History History of cataract surgery History of eye surgery History of cholecystectomy Social History Housing: Assisted Living Facility Patient Tobacco Use Status: Former Tobacco user Tobacco use type: Cigarette Cigarettes Per Day: 3 e-Cigarette/Vaping Use: Never Used Second Hand Smoke Exposure: No service: No Current occupational status: retired Cognitive needs: No Hearing needs: Yes ( having trouble hearing) Vision needs: Yes Questionnaire Thrive Questionnaire Date Thrive assessed: 12/25/23 MELINDA-7 AMB Questionnaire MELINDA-7 Date MELINDA - 7 assessed: 12/25/23 Source: Developed by Drs. Trip Schneider, Claudia Hernandez, Dante Milan and colleagues, with an educational mohamud from [employer]. Review of Systems Const Denies chills, Denies headache(s) and Denies weight loss ENT Denies headache(s) Card Denies chest pain, Denies syncope, Denies irregular heart rhythm and Denies dyspnea Resp Denies chest congestion, Denies cough and Denies dyspnea GI Denies abdominal pain, Denies change in stool character, Denies nausea and Denies vomiting Musc Denies deformity and Denies joint swelling Neuro Denies syncope and Denies headache(s) Physical exam (Primary Care) Vital Signs: Last Vital Signs Pulse 96 01/31/24 09:51 BP 120/80 01/31/24 09:51 Pulse Ox 99 01/31/24 09:51 Oxygen Delivery Method Room Air 01/31/24 09:51 BMI result Body Mass Index 32.4 Tobacco/Smoking Status: Tobacco use Status Tobacco use date assessed 12/25/23 01/31/24 09:53 Patient Tobacco Use Status Former Tobacco user 01/31/24 09:53 Tobacco use type Cigarette 01/31/24 09:53 e-Cigarette/Vaping Use Never Used 01/31/24 09:53 Thrive Assessment: Date of Thrive Assessment Date Thrive assessed 12/25/23 01/31/24 09:53 Const General: cooperative, comfortable, no acute distress and alert Neck Neck: Yes no lymphadenopathy Thyroid: Thyroid normal Resp Effort & Inspection: normal respiratory effort Auscultation: clear to auscultation bilaterally Percussion: percussion normal Cardio Jugular venous distension: no JVD Palpation: normal PMI Rate: regular rate Rhythm: regular rhythm Heart sounds: S1 normal heart sound present and S2 normal heart sound present GI Inspection: Yes normal to inspection Palpation (GI): No hepatosplenomegaly present Skin General skin exam: no rashes or lesions noted Extrem Other: left lower leg 3+ edema Assessment and Plan Assessment & Plan (1) Leg edema, left: Code(s): R60.0 - Localized edema Plan: US labs and xr Orders: Orders US venous duplex LE LT Today R60.0 - Localized edema XR ankle LT 2V Today M25.579 - Pain in unspecified ankle and joints of unspecified foot Uric Acid Today M10.9 - Gout, unspecified Coding Level of Care Code Est Pt Level 3 (47055) Diagnoses Leg edema, left R60.0
== END 2024-01-31 10:18 | disposition home or self-care (01) ==
PROVIDERS: PCP Internal Medicine; Visit Provider Internal Medicine
DX: R60.0 Localized edema (principal)
CPT/HCPCS: 99213

== ENCOUNTER 2024-01-31 10:59 | Outpatient (REF) | payer MEDICARE, OTHER, SELFPAY ==
--- NOTE | ~2024-01-31 | US_ITS ---
EXAMINATION: US VENOUS ULTRASOUND WITH DOPPLER LOWER EXTREMITY, LEFT CLINICAL INFORMATION: Left lower extremity edema COMPARISON: None available. TECHNIQUE: Ultrasound of the deep veins is performed from the hip to the calf with compression sonography and color and pulse Doppler assessment. Spectral analysis with color-flow imaging is performed. FINDINGS: There is normal venous compression and respiratory variation and augmented flow. The visualized common femoral vein, superficial femoral vein, profunda femoral vein, popliteal vein, and the trifurcation region shows no evidence of deep venous thrombosis. There is a 5.0 x 1.4 x 4.3 cm Anthony's cyst present . A prominent 2.4 x 0.7 x 0.8 cm left groin lymph node is seen. If the patient's symptoms persist, followup ultrasound in 5 days 7 days might be of value to exclude proximal propagation from a non-visualized calf vein. US/US venous duplex LE LT IMPRESSION: No DVT demonstrated in the left lower extremity. A Anthony's cyst is present.
== END 2024-01-31 11:00 | disposition home or self-care (01) ==
LOC: HO.HMGCX 10:59
PROVIDERS: PCP Internal Medicine; Visit Provider Internal Medicine
DX: R60.0 Localized edema (principal)
CPT/HCPCS: 93971

== ENCOUNTER 2024-02-11 08:59 | Outpatient (REF) | payer MEDICARE, OTHER, SELFPAY ==
--- NOTE | ~2024-02-11 | XR_ITS ---
EXAMINATION: XR ANKLE, LEFT CLINICAL INFORMATION: Left ankle pain. COMPARISON: None available. TECHNIQUE: AP, lateral, and mortise views of the left ankle. FINDINGS: Severe tibiotalar joint space narrowing with bony remodeling and marginal osteophytes. Lateral tilt/valgus angulation of the talar dome in relation to the tibial plafond. Corticated ossification adjacent to the medial malleolus consistent with a remote, unfused avulsion fracture. No acute fracture or dislocation. Joint space narrowing with marginal osteophytes along the dorsal midfoot. Plantar and dorsal calcaneal spurs. Prominent circumferential soft tissue swelling, most severe anteriorly and laterally. XR/XR ankle LT min 3V IMPRESSION: 1. Severe tibiotalar osteoarthritis with bony remodeling and lateral tilt/valgus angulation of the talar dome in relation to the tibial plafond. 2. Prominent circumferential soft tissue swelling, most severe anteriorly and laterally. 3. Moderate degenerative arthritis at the dorsal midfoot.
== END 2024-02-11 09:00 | disposition home or self-care (01) ==
LOC: HO.HOSX 08:59
PROVIDERS: Visit Provider Orthopaedic Surgery
DX: M25.572 Pain in left ankle and joints of left foot (principal); M19.072 Primary osteoarthritis, left ankle and foot
CPT/HCPCS: 20605; 73610; 99212; J0665; J1100

== ENCOUNTER 2024-02-11 10:31 | Outpatient (AMB) | payer MEDICARE, OTHER, SELFPAY ==
--- NOTE | 2024-02-11 10:43 | MHC.OFFVIS ---
Intake Vital Signs 02/11/24 10:52 Height 5 ft 5 in Weight 195 lb BMI 32.4 Intake Visit Reasons: new prob-Lt ankle pain Allergies codeine Allergy (Verified 02/11/24 10:56) Hallucinations meperidine [From Demerol] Allergy (Verified 02/11/24 10:56) Hallucinations Iodinated Contrast Media [IV Contrast Dye] Adverse Reaction (Verified 02/11/24 10:56) Anxiety HPI new prob-Lt ankle pain HPI Details This is an 84-year-old woman with longstanding left ankle pain. She has known left ankle osteoarthritis. She walks with a limp. Her primary complaint is pain at the end of the day and swelling. [facility] Medical History COVID-19 virus infection (~03/15/22) Chondroma Encounter to establish care Surgical History History of cataract surgery History of eye surgery History of cholecystectomy Social History Housing: Assisted Living Facility Patient Tobacco Use Status: Former Tobacco user Tobacco use type: Cigarette Cigarettes Per Day: 3 e-Cigarette/Vaping Use: Never Used Second Hand Smoke Exposure: No service: No Current occupational status: retired Cognitive needs: No Hearing needs: Yes ( having trouble hearing) Vision needs: Yes Physical Exam Vital Signs: BMI result Body Mass Index 32.4 Extrem Other: Left ankle with marked circumferential effusion. Tenderness to palpation medial and lateral with ipsilateral flatfoot deformity. Office Procedures Joint Injection/Drain Joint Injection/Drain Details: Injected 1 mL of Decadron and 3 mL 1% lidocaine and 3 mL of 0.25% Marcaine. Site was prepped using aseptic technique. Patient tolerated the procedure well. Primary Site: left ankle Approach Used: anteromedial Coding 84524 - Medium joint Procedure code (CPT) selection complete Results Reviewed Results Reviewed: I personally reviewed relevant radiographs. A loss of normal talar tilt and evidence of moderate to severe arthritic changes left ankle Assessment & Plan Assessment & Plan (1) Ankle arthritis: Code(s): M19.079 - Primary osteoarthritis, unspecified ankle and foot Plan: This is an 84-year-old woman with left ankle osteoarthritis. We discussed the radiographic findings items and I injected her left ankle. Should pain persist she may consider returning in a referral to a foot and ankle surgeon but, at this time, she has not interested in pursuing this. Orders: Orders XR ankle LT min 3V 02/11/24 M25.579 - Pain in unspecified ankle and joints of unspecified foot Coding Level of Care Code Est Pt Level 3 (44745) Diagnoses Ankle arthritis M19.079 CPT Codes Coding - 44485 Medium joint: 26436 - Medium joint ([id number])
--- NOTE | 2024-02-11 10:43 | MHC.OFFVIS ---
Intake Vital Signs 02/11/24 10:52 Height 5 ft 5 in Weight 195 lb BMI 32.4 Intake Visit Reasons: new prob-Lt ankle pain Intake Note: iNcky is a 84 year old female with a new problem who presents today with complaints on left ankle pain. 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 Currently she complains of on and off pain with no recent injury. She has tried and failed Tylenol, lidocaine, and heat application. She has not tried bracing and has pain with prolonged standing. Has been utilizing a cane due to feelings of instability within the ankle. Allergies codeine Allergy (Verified 02/11/24 10:56) Hallucinations meperidine [From Demerol] Allergy (Verified 02/11/24 10:56) Hallucinations Iodinated Contrast Media [IV Contrast Dye] Adverse Reaction (Verified 02/11/24 10:56) Anxiety HPI new prob-Lt ankle pain HPI Details Nicky is a 84 year old female with a new problem who presents today with complaints on left ankle pain. 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 Currently she complains of on and off pain with no recent injury. She has tried and failed Tylenol, lidocaine, and heat application. She has not tried bracing and has pain with prolonged standing. Has been utilizing a cane due to feelings of instability within the ankle. [facility] Medical History COVID-19 virus infection (~03/15/22) Chondroma Encounter to establish care Surgical History History of cataract surgery History of eye surgery History of cholecystectomy Social History Housing: Assisted Living Facility Patient Tobacco Use Status: Former Tobacco user Tobacco use type: Cigarette Cigarettes Per Day: 3 e-Cigarette/Vaping Use: Never Used Second Hand Smoke Exposure: No service: No Current occupational status: retired Cognitive needs: No Hearing needs: Yes ( having trouble hearing) Vision needs: Yes Physical Exam Vital Signs: BMI result Body Mass Index 32.4 Extrem Other: Large effusion left ankle NO erytheam or warmth + gait antalgia 5-15 deg motion Office Procedures Joint Injection/Drain Joint Injection/Drain Details: Injected 1 mL of Decadron and 3 mL 1% lidocaine and 3 mL of 0.25% Marcaine. Site was prepped using aseptic technique. Patient tolerated the procedure well. Primary Site: left ankle Approach Used: anteromedial Coding 12062 - Medium joint Procedure code (CPT) selection complete Results Reviewed Results Reviewed: I personally reviewed relevant radiographs. Talar tilt with osteophytes and loss of joint space Assessment & Plan Assessment & Plan (1) Ankle arthritis: Code(s): M19.079 - Primary osteoarthritis, unspecified ankle and foot Plan: Left ankle OA. Injected left ankle. If pain worsens can consider referral but she is not interested in surgery at this time. Orders: Orders XR ankle LT min 3V 02/11/24 M25.579 - Pain in unspecified ankle and joints of unspecified foot Coding Level of Care Code Est Pt Level 4 (93398) Diagnoses Ankle arthritis M19.079 CPT Codes Coding - 63070 Medium joint: 37272 - Medium joint ([id number])
[2024-02-11 10:52] VITALS: BMI 32.4
== END 2024-02-11 11:27 | disposition home or self-care (01) ==
PROVIDERS: PCP Internal Medicine; Visit Provider Orthopaedic Surgery
DX: M19.072 Primary osteoarthritis, left ankle and foot (principal)
CPT/HCPCS: 20605; 99214

== ENCOUNTER 2024-03-19 11:00 | Outpatient (RCR) | payer MEDICARE, OTHER, SELFPAY | END 2024-03-19 14:49 | disposition home or self-care (01) | LOC: HO.PT 11:00 | PROVIDERS: PCP Internal Medicine; Visit Provider Nurse Practitioner Primary Care | DX: S16.1XXA Strain of muscle, fascia and tendon at neck level, initial encounter (principal) | CPT/HCPCS: 97110; 97140; 97161 ==

== ENCOUNTER 2024-04-18 09:16 | Outpatient (AMB) | payer MEDICARE, OTHER, SELFPAY ==
[2024-04-18 09:18] VITALS: BP 130/64; PULSE 63; O2SAT 93; BMI 32.6
--- NOTE | 2024-04-18 09:18 | A.OFFPC_ITS ---
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 Accompanied by: Self / Same As Patient Allergies codeine Allergy (Verified 04/18/24 09:19) Hallucinations meperidine [From Demerol] Allergy (Verified 04/18/24 09:19) Hallucinations Iodinated Contrast Media [IV Contrast Dye] Adverse Reaction (Verified 04/18/24 09:19) Anxiety Medication List - Last Reconciled 04/18/24 by Tee Estrella MD albuterol sulfate 90 mcg/actuation 2 inhalations inhalation Q4-6H betamethasone, augmented 0.05 % 1 appl topical DAILY PRN blood sugar diagnostic ([employer] Ultra Test strips) 2x day cane Quad cane lisinopril 5 mg PO DAILY metformin 500 mg PO BID 90 days Tobacco use date assessed: 12/25/23 Fall risk assessment: No Falls in past year Last assessed Fall Risk: 04/18/24 Dental Screening Dental Screen Date: 01/31/24 HPI 4 month f/u HPI Details HTN on Rx; doing well PFSH Medical History COVID-19 virus infection (~03/15/22) Chondroma Encounter to establish care Surgical History History of cataract surgery History of eye surgery History of cholecystectomy Social History Housing: Assisted Living Facility Patient Tobacco Use Status: Former Tobacco user Tobacco use type: Cigarette Cigarettes Per Day: 3 e-Cigarette/Vaping Use: Never Used Second Hand Smoke Exposure: No service: No Current occupational status: retired Cognitive needs: Yes (cane) Hearing needs: Yes ( having trouble hearing) Vision needs: Yes (glasses) Questionnaire Thrive Questionnaire Date Thrive assessed: 12/25/23 MELINDA-7 AMB Questionnaire MELINDA-7 Date MELINDA - 7 assessed: 12/25/23 Source: Developed by Drs. Trip Schnedier, Claudia Hernandez, Dante Milan and colleagues, with an educational mohamud from [email or web address]. Review of Systems Const Denies chills, Denies headache(s) and Denies weight loss ENT Denies headache(s) Card Denies chest pain, Denies syncope, Denies irregular heart rhythm and Denies dyspnea Resp Denies chest congestion, Denies cough and Denies dyspnea GI Denies abdominal pain, Denies change in stool character, Denies nausea and De nies vomiting Musc Denies deformity and Denies joint swelling Neuro Denies syncope and Denies headache(s) Physical exam (Primary Care) Vital Signs: Last Vital Signs Pulse 63 04/18/24 09:18 BP 130/64 04/18/24 09:18 Pulse Ox 93 04/18/24 09:18 Oxygen Delivery Method Room Air 04/18/24 09:18 BMI result Body Mass Index 32.6 Tobacco/Smoking Status: Tobacco use Status Tobacco use date assessed 12/25/23 04/18/24 09:19 Patient Tobacco Use Status Former Tobacco user 04/18/24 09:19 Tobacco use type Cigarette 04/18/24 09:19 e-Cigarette/Vaping Use Never Used 04/18/24 09:19 Thrive Assessment: Date of Thrive Assessment Date Thrive assessed 12/25/23 04/18/24 09:19 Const General: cooperative, comfortable, no acute distress and alert Neck Neck: Yes no lymphadenopathy Thyroid: Thyroid normal Resp Effort & Inspection: normal respiratory effort Auscultation: clear to auscultation bilaterally Percussion: percussion normal Cardio Jugular venous distension: no JVD Palpation: normal PMI Rate: regular rate Rhythm: regular rhythm Heart sounds: S1 normal heart sound present and S2 normal heart sound present GI Inspection: Yes normal to inspection Palpation (GI): No hepatosplenomegaly present Skin General skin exam: no rashes or lesions noted Extrem General: Yes no clubbing, cyanosis or edema Results AMB Hemoglobin A1c AMB Hemoglobin A1c 6.4 % Last Edit by HILARIA Iqbal on 04/18/24 09:30 Results Reviewed Results Reviewed: Laboratory Last Values Hgb A1c (Clinic) 6.4 % (4.0-6.0) H 04/18/24 09:19 Assessment and Plan Assessment & Plan (1) Essential hypertension: Code(s): I10 - Essential (primary) hypertension Plan: stable; same rx Orders: Orders AMB Hemoglobin A1c Today E11.9 - Type 2 diabetes mellitus without complications Lipid Panel Today Z13.220 - Encounter for screening for lipoid disorders Comprehensive [place]. Panel Fast Today Z13.9 - Encounter for screening, unspecified Complete Blood Count Auto Diff Today Z13.0 - Encounter for screening for diseases of the blood and blood-forming organs and certain disorders involving the immune mechanism Hemoglobin A1c Today R73.9 - Hyperglycemia, unspecified Microalbumin, Random (w Creat) Today E11.69 - Type 2 diabetes mellitus with other specified complication, E66.01 - Morbid (severe) obesity due to excess calories Coding Level of Care Code Est Pt Level 3 (98921) Diagnoses Essential hypertension I10
== END 2024-04-18 09:47 | disposition home or self-care (01) ==
PROVIDERS: PCP Internal Medicine; Visit Provider Internal Medicine
DX: E11.9 Type 2 diabetes mellitus without complications (principal); I10 Essential (primary) hypertension
CPT/HCPCS: 83036; 99213

== ENCOUNTER 2024-05-25 07:49 | Emergency (ER) | payer MEDICARE, OTHER, SELFPAY ==
--- NOTE | ~2024-05-25 | XR_ITS ---
RADIOGRAPH LEFT ANKLE AND LEFT FOOT CLINICAL HISTORY: Trauma. COMPARISON: Radiograph left ankle 02/11/2024. TECHNIQUE: 2 views of the left ankle. 3 views of the left foot. FINDINGS: Left ankle: Mildly increased asymmetric widening of the medial clear space of the ankle mortise compared to recent prior. Again noted is severe tibiotalar osteoarthritis with bone remodeling and lateral back is angulation of the talar dome in relation to the tibial plafond. No discrete osseous fractures. Persistent significant circumferential soft tissue swelling around the ankle. Left foot: Prominent hallux valgus deformity with associated moderate degenerative osteoarthritis of the first metatarsophalangeal joint. No acute fractures or dislocation. Moderate diffuse soft tissue swelling. XR/XR ankle LT min 3V IMPRESSION: 1. Mildly increased asymmetric widening of the medial clear space of the ankle mortise compared to recent prior, findings could indicate underlying ligamentous injury. Further evaluation with an MRI of the left ankle as clinically warranted. 2. Prominent hallux valgus deformity with associated degenerative arthrosis of the first metatarsophalangeal joint. 3. Diffuse soft tissue swelling, more severe circumferentially around the angle.
--- NOTE | ~2024-05-25 | XR_ITS ---
RADIOGRAPH LEFT ANKLE AND LEFT FOOT CLINICAL HISTORY: Trauma. COMPARISON: Radiograph left ankle 02/11/2024. TECHNIQUE: 2 views of the left ankle. 3 views of the left foot. FINDINGS: Left ankle: Mildly increased asymmetric widening of the medial clear space of the ankle mortise compared to recent prior. Again noted is severe tibiotalar osteoarthritis with bone remodeling and lateral back is angulation of the talar dome in relation to the tibial plafond. No discrete osseous fractures. Persistent significant circumferential soft tissue swelling around the ankle. Left foot: Prominent hallux valgus deformity with associated moderate degenerative osteoarthritis of the first metatarsophalangeal joint. No acute fractures or dislocation. Moderate diffuse soft tissue swelling. XR/XR foot LT min 3V IMPRESSION: 1. Mildly increased asymmetric widening of the medial clear space of the ankle mortise compared to recent prior, findings could indicate underlying ligamentous injury. Further evaluation with an MRI of the left ankle as clinically warranted. 2. Prominent hallux valgus deformity with associated degenerative arthrosis of the first metatarsophalangeal joint. 3. Diffuse soft tissue swelling, more severe circumferentially around the angle.
[2024-05-25 07:52] VITALS: BP 170/90; PULSE 82; O2SAT 96; BMI 32.8
[2024-05-25] MEDS: Acetaminophen 325 MG TABLET 975 MG PO (07:58)
[2024-05-25 08:00] VITALS: BP 150/68; PULSE 76; RESP 18; TEMP 36.7; O2SAT 95
--- NOTE | 2024-05-25 08:01 | ED.LOWEXIN ---
HPI - Extremity Injury (Lower) General Chief Complaint: Extremity Injury, Lower Stated Complaint: L ANKLE SWELLING Source: patient Mode of arrival: EMS Limitations: no limitations History of Present Illness HPI Narrative: This is 84 years old patient presented to emergency department complaining of left ankle pain she states that yesterday while taking the elevator tripped. She has difficult to ambulate now. She has history of chronic left ankle pain but now is worse. MD complaint: ankle injury and other (Left) Onset (ago): day(s) (1) Type of Injury: blunt Place: other ([facility] community) Severity: moderate Relieving factors: nothing Exacerbating factors: nothing Context: walking Other symptoms: none Related Data Previous Rx's ?Medication ?Instructions ?Recorded cane #1 ea 06/07/22 albuterol sulfate 90 mcg/actuation 2 inh inhalation Q4-6H #8.5 grams 03/15/23 aerosol inhaler blood sugar diagnostic (OneTouch #100 ea 03/29/23 Ultra Test strips) metformin 500 mg tablet 500 mg PO BID 90 days #180 tabs 12/12/23 betamethasone, augmented 0.05 % 1 appl topical DAILY PRN rash #15 02/05/24 topical ointment grams lisinopril 5 mg tablet 5 mg PO DAILY #90 tabs 03/09/24 Allergies Allergy/AdvReac Type Severity Reaction Status Date / Time codeine Allergy Hallucinati Verified 05/25/24 07:53 ons meperidine [From Demerol] Allergy Hallucinati Verified 05/25/24 07:53 ons Iodinated Contrast Media AdvReac Anxiety Verified 05/25/24 07:53 [IV Contrast Dye] Review of Systems Constitutional: Constitutional: Reports no additional constitutional complaints ENT: Reports system reviewed and no additional complaints, except as documented Respiratory: Respiratory: Reports no additional respiratory complaints Genitourinary: Genitourinary: Reports no additional female genitourinary complaints [facility] Past Medical History Attestation statement: The following information was validated with the patient. Medical History COVID-19 virus infection (~03/15/22) Chondroma Encounter to establish care Surgical History History of cataract surgery History of eye surgery History of cholecystectomy Social History Social History Housing: Assisted Living Facility Alcohol intake: current Alcohol intake frequency: holidays/special occasions only Patient Tobacco Use Status: Former Tobacco user Tobacco use type: Cigarette Cigarettes Per Day: 3 Smoked in Last 30 Days: No e-Cigarette/Vaping Use: Never Used Second Hand Smoke Exposure: No Use of substances other than those prescribed or required for medical reasons: No Advance Directives: Yes Advance Directives Information Provided: No Advance Directives on File: No Do you have a plan to hurt others: No Plan service: No Current occupational status: retired Cognitive needs: Yes (cane) Hearing needs: Yes ( having trouble hearing) Vision needs: Yes (glasses) Physical Exam Vital Signs: Vital Signs: Last Vital Signs Temp 98.0 F 05/25/24 08:00 Pulse 76 05/25/24 08:00 Resp 18 05/25/24 08:00 BP 150/68 H 05/25/24 08:00 Pulse Ox 95 05/25/24 08:00 O2 Del Method Room Air 05/25/24 08:00 BMI result Body Mass Index 32.8 Not acute distress Const: General: cooperative Nutritional Appearance: well nourished Orientation/consciousness: patient oriented x3 HEENT: Head: Yes normal to inspection General nose exam: Normal external nose present Face and sinus: Yes normal facial exam Mouth: Normal oral and palatal mucosa present Throat: Yes posterior oropharynx normal Neck: Neck: Yes normal visual inspection Chest: Chest palpation & inspection: normal inspection of the chest Resp: Effort & Inspection: normal respiratory effort Auscultation: clear to auscultation bilaterally Cardio: Jugular venous distension: no JVD Rhythm: regular rhythm GI: Inspection: Yes normal to inspection Neuro: General: patient oriented x3 Extrem: Other: Examination the left ankle shows swelling tenderness good pulses General: Yes capillary refill normal Course Reevaluation(s) Reevaluation #1: Seen by Jaycee Moody Medications Administered Discontinued Medications Generic Name Dose Route Start Last Admin Trade Name Freq PRN Reason Stop Dose Admin Acetaminophen 975 mg 05/25/24 07:54 05/25/24 07:58 Acetaminophen 325 Mg Tablet PO 05/25/24 07:55 975 mg ONCE ONE Administration Medical Decision Making Medical Decision Making MDM Narrative: Patient presented with left ankle pain injured the last night will obtain imaging Differential Diagnosis Differential Diagnoses: The differential diagnosis associated with the presentation includes Ankle fracture/dislocation of the ankle Admission/Observation Consideration of admission/observation: Escalation of care including admission/observation considered Consult Healthcare Provider Management of the patient was discussed with: Medical Practice Assistant Nilsa GONZALEZ Independent Interpretation I performed an independent interpretation of an: Plain X-Ray Interpretation: I personally review and interpreted the x-ray as no acute fracture Radiology Impression Discussion of test interpretation with radiology: I have reviewed the radiologist's reading. Radiologist Impression: recent prior. Again noted is severe tibiotalar osteoarthritis with bone remodeling and lateral back is angulation of the talar dome in relation to the tibial plafond. No discrete osseous fractures. Persistent significant circumferential soft tissue swelling around the ankle. Left foot: Prominent hallux valgus deformity with associated moderate degenerative osteoarthritis of the first metatarsophalangeal joint. No acute fractures or dislocation. Moderate diffuse soft tissue swelling. XR/XR ankle LT min 3V IMPRESSION: 1. Mildly increased asymmetric widening of the medial clear space of the ankle mortise compared to recent prior, findings could indicate underlying ligamentous injury. Further evaluation with an MRI of the left ankle as clinically warranted. 2. Prominent hallux valgus deformity with associated degenerative arthrosis of the first metatarsophalangeal joint. 3. Diffuse soft tissue swelling, more severe circumferentially around the angle. Dictated By: Vanessa Maharaj Signed By: <Electronically signed by Independent Historian Clinical information obtained from an independent historian. History obtained from or confirmed by: EMS Discharge Plan Discharge Clinical Impression: Left ankle sprain Qualifiers: Encounter type: initial encounter Involved ligament of ankle: unspecified ligament Qualified Code(s): S93.402A - Sprain of unspecified ligament of left ankle, initial encounter Patient Disposition: Home, Self-Care Instructions: Ankle Sprain (DC) Additional Instructions: Follow-up with orthopedist partial weight-bearing in the left ankle, use the boot Prescriptions: No Action albuterol sulfate 90 mcg/actuation HFA aerosol inhaler 2 inh inhalation Q4-6H Qty: 8.5 2RF metformin 500 mg tablet 500 mg PO BID 90 Days Qty: 180 1RF betamethasone, augmented 0.05 % ointment 1 appl topical DAILY PRN (Reason: rash) Qty: 15 0RF lisinopril 5 mg tablet 5 mg PO DAILY Qty: 90 1RF (DME) OneTouch Ultra Test Strip See Rx Instructions .Route Qty: 100 5RF Rx Instructions: 2x day (DME) cane Device See Rx Instructions .MEDSUPPLY Qty: 1 0RF Rx Instructions: Quad cane Referrals: Evan Najera MD [Physician] - 5 days Print Language: Irish
--- NOTE | 2024-05-25 08:08 | PC.NURSE ---
pt biba from home ([facility] x 3 years) d/t LLE pain. a&ox4. vss and up to date. pt verbalizes stepping off of an elevator where she then twisted her left ankle/heard a crunch. pt verbalizes being independent w/ walker (sometimes) baseline but she just stepped off of the elevator in a weird way. left ankle swollen/red/hot to the touch. pt verbalizes numbness/tingling in lower extremity. decreased sensation in LLE noted. pt verbalizing 9/10 pain while ambulating but states pain subsides and there's only numbness/tingling at rest. cms intact. pt medicated per provider order. effectiveness pending. pt waiting for imaging to be completed. no sob/wob noted. respirations even/unlabored. plan of care ongoing. call goldstein placed within reach.
--- NOTE | 2024-05-25 08:22 | PC.NURSE ---
xray being taken at this time.
--- NOTE | 2024-05-25 09:03 | PC.NURSE ---
pt verbalizing pain level decreased to a 5/10 s/p medication administration. pt waiting for xray results to come back at this time.
--- NOTE | 2024-05-25 10:52 | PC.NURSE ---
orthopedics consult completed. boot applied to LLE by tech. pt tolerated well. pt ambulated to the restroom w/ walker for assistance w/ steady gait. pt tolerated well. pt being discharged w/ daughter back to [facility].
[2024-05-25 11:02] VITALS: BP 157/79; PULSE 84; RESP 16; TEMP 36.7; O2SAT 94
--- NOTE | 2024-05-25 11:43 | PM.CNOR ---
History of Present Illness HPI Consult date: 05/25/24 Chief complaint: L Ankle Swelling No Injury Narrative: Patient is an 84-year-old female who is in the emergency department following acute onset of ankle pain and swelling last night. The patient reports that she was stepping off of the elevator at her home, when she felt a pop on the medial aspect of her left ankle, and immediately began to experience pain and swelling. Patient reports no injury or traumatic event to the area. Patient reports that her pain continues to be primarily on the medial aspect of the left ankle, but also reports mild discomfort in the lateral ankle. Patient reports that she has been largely unable to put weight on her left ankle since date of injury. [facility] Past Medical History Medical History COVID-19 virus infection (~03/15/22) Chondroma Encounter to establish care Surgical History Surgical History History of cataract surgery History of eye surgery History of cholecystectomy Social History Social History Housing: Assisted Living Facility Alcohol intake: current Alcohol intake frequency: holidays/special occasions only Patient Tobacco Use Status: Former Tobacco user Tobacco use type: Cigarette Cigarettes Per Day: 3 Smoked in Last 30 Days: No e-Cigarette/Vaping Use: Never Used Second Hand Smoke Exposure: No Use of substances other than those prescribed or required for medical reasons: No Advance Directives: Yes Advance Directives Information Provided: No Advance Directives on File: No Do you have a plan to hurt others: No Plan service: No Current occupational status: retired Cognitive needs: Yes (cane) Hearing needs: Yes ( having trouble hearing) Vision needs: Yes (glasses) Meds Allergies Allergy/AdvReac Type Severity Reaction Status Date / Time codeine Allergy Hallucinati Verified 05/25/24 07:53 ons meperidine [From Demerol] Allergy Hallucinati Verified 05/25/24 07:53 ons Iodinated Contrast Media AdvReac Anxiety Verified 05/25/24 07:53 [IV Contrast Dye] Physical Exam Vital Signs: Vital Signs: Last Vital Signs Temp 98.1 F 05/25/24 11:02 Pulse 84 05/25/24 11:02 Resp 16 05/25/24 11:02 BP 157/79 H 05/25/24 11:02 Pulse Ox 94 05/25/24 11:02 O2 Del Method Room Air 05/25/24 11:02 BMI result Body Mass Index 32.8 Extrem: Other: On inspection, there is noted edema and ecchymosis of both the medial and lateral malleoli of the left ankle No erythema or evidence of infection noted Patient reports moderate tenderness to palpation over the medial malleolus Patient reports very mild tenderness over the lateral malleolus and the syndesmosis Range of motion of the left ankle restricted due to pain Sensation to the distal lower extremity full and intact Capillary refill brisk Results Labs Labs: All other labs normal. Diagnostic results Ankle/Foot x-ray: report reviewed and image reviewed (X-rays obtained in the ED today and independently reviewed by me, Nickolas Moody PA-C, demonstrate severe arthritic changes of the left ankle, but no acute fracture or bony abnormality noted. ) Assessment and Plan (1) Left ankle sprain: Qualifiers: Encounter type: initial encounter Involved ligament of ankle: unspecified ligament Qualified Code(s): S93.402A - Sprain of unspecified ligament of left ankle, initial encounter Status: Acute Plan 1. Left ankle sprain After consultation and discussion with Dr. Najera, a joint treatment plan was formed Patient will be placed in a walking boot today, and can partially weight bear as tolerated on her left lower extremity Patient advised to she does not have to wear this to be, to bed or at while at rest Patient educated on conservative measures such as rest, ice, compression, elevation Patient is amenable to this plan Patient will schedule follow-up in our office in 1-2 weeks upon discharge from the hospital Procedures Date of Service Date of Service: 05/25/24
== END 2024-05-25 11:02 | disposition home or self-care (01) ==
PROVIDERS: Emergency Provider Emergency Medicine; PCP Internal Medicine
DX: S93.402A Sprain of unspecified ligament of left ankle, initial encounter (principal); R60.0 Localized edema; X58.XXXA Exposure to other specified factors, initial encounter; Y93.89 Activity, other specified; Y92.89 Other specified places as the place of occurrence of the external cause; Y99.8 Other external cause status
CPT/HCPCS: 73610; 73630; 99283; 99284

== ENCOUNTER → 2024-05-25 08:12 | Outpatient (BNV) | payer MEDICARE, OTHER, SELFPAY | PROVIDERS: Emergency Provider Emergency Medicine; PCP Internal Medicine | DX: S93.402A Sprain of unspecified ligament of left ankle, initial encounter (principal) | CPT/HCPCS: 99283 ==

== ENCOUNTER 2024-06-16 08:14 | Outpatient (REF) | payer MEDICARE, OTHER, SELFPAY ==
--- NOTE | ~2024-06-16 | XR_ITS ---
EXAMINATION: XR ANKLE, LEFT CLINICAL INFORMATION: Pain. COMPARISON: Radiographs dated 05/25/2024. TECHNIQUE: AP, lateral, and mortise views of the left ankle. FINDINGS: Bony mineralization is normal. Again, there is mild asymmetric widening of medial clear space, and there is some asymmetric narrowing of the lateral tibiotalar articulation. No fracture, dislocation or significant joint effusion is seen. There are soft tissue calcifications adjacent to the bilateral malleoli, raising the question of old ligamentous injuries. There is peripheral osteophyte formation of the tibiotalar joint. Boehler's angle is normal. There are moderate plantar and small posterior calcaneal spurs. There is generalized soft tissue swelling, most pronounced adjacent to the lateral malleolus. No soft tissue gas or foreign body is seen. XR/XR ankle LT min 3V IMPRESSION: 1. There is stable asymmetric widening of the medial clear space, and there are soft tissue calcifications adjacent to the bilateral malleoli. These findings raise the possibility of prior ligamentous injury and can be further evaluated with MRI. 2. There is osteoarthritic change of the left tibiotalar joint. 3. There are calcaneal spurs. 4. No acute fracture, dislocation or joint effusion is seen. 5. There is generalized soft tissue swelling, most pronounced laterally. Electronically signed by: Po Colmenares MD 07/15/2024 09:02 AM EDT
== END 2024-06-16 08:15 | disposition home or self-care (01) ==
LOC: HO.HOSX 08:14
PROVIDERS: Visit Provider Physician Assistant
DX: M25.572 Pain in left ankle and joints of left foot (principal); M19.072 Primary osteoarthritis, left ankle and foot
CPT/HCPCS: 73610; 99212

== ENCOUNTER 2024-06-16 08:53 | Outpatient (AMB) | payer MEDICARE, OTHER, SELFPAY ==
--- NOTE | 2024-06-16 08:54 | MHC.OFFVIS ---
Vital Signs 06/16/24 09:06 Height 5 ft 5 in Weight 197 lb BMI 32.8 Intake Visit Reasons: OV - left ankle OA Intake Note: Nicky an 84 year old female who presents today for a follow up of her left ankle OA. Patient reports her boot has helped with her pain. She mentions that she is still having swelling in her ankle and foot. Patient states that her pain has gotten better. She is still having numbness/stiffness in the morning and sometimes through out the day in her foot/toes. Allergies codeine Allergy (Verified 06/16/24 09:06) Hallucinations meperidine [From Demerol] Allergy (Verified 06/16/24 09:06) Hallucinations Iodinated Contrast Media [IV Contrast Dye] Adverse Reaction (Verified 06/16/24 09:06) Anxiety Medication List - Last Reconciled 06/16/24 by Mikki An PA-C albuterol sulfate 90 mcg/actuation 2 inhalations inhalation Q4-6H betamethasone, augmented 0.05 % 1 appl topical DAILY PRN blood sugar diagnostic (ApniCureTouch Ultra Test strips) 2x day cane Quad cane lisinopril 5 mg PO DAILY metformin 500 mg PO BID 90 days HPI HPI OV - left ankle OA: Details: 84-year-old female who presents to the office today for an ED follow-up of right ankle pain. She states she has improvement in her pain however she continues to have swelling in her ankle and foot. She also experiences numbness, tingling and stiffness in the mornings and occasionally throughout the day that radiates into her foot. She finds pain and swelling relief with her walking boot. She takes Tylenol for her pain as needed. [facility] Medical History COVID-19 virus infection (~03/15/22) Chondroma Encounter to establish care Surgical History History of cataract surgery History of eye surgery History of cholecystectomy Social History Housing: Assisted Living Facility Alcohol intake: current Alcohol intake frequency: holidays/special occasions only Patient Tobacco Use Status: Former Tobacco user Tobacco use type: Cigarette Cigarettes Per Day: 3 e-Cigarette/Vaping Use: Never Used Second Hand Smoke Exposure: No service: No Current occupational status: retired Cognitive needs: Yes (cane) Hearing needs: Yes ( having trouble hearing) Vision needs: Yes (glasses) Review of Systems Const All systems reviewed & are unremarkable except as noted in HPI and below Physical Exam Vital Signs: BMI result Body Mass Index 32.8 Const Other: Left ankle: Normal to inspection with diffuse swelling over the medial and lateral malleolus with tenderness along the soft tissues. Mild discomfort along the posterior aspect of the ankle, no deformity along the Achilles tendon, negative Elkins?s. No pain along the syndesmosis or anterior tibia. No laxity, NVI. Extrem Other: Left ankle normal to inspection without swelling over the medial or lateral malleolus with out tenderness to the posterior malleolus . No pain along the syndesmosis or anterior tibia. No defect along the achilles tendon Negative [place] No laxity, NVI. Assessment & Plan Assessment & Plan (1) Osteoarthritis of left ankle: Code(s): M19.072 - Primary osteoarthritis, left ankle and foot Category: Medical Qualifiers: Osteoarthritis type: primary Qualified Code(s): M19.072 - Primary osteoarthritis, left ankle and foot Plan She will transition to an ankle brace weight bearing as tolerated. She will begin a course of physical therapy to work on ROM, gentle strengthening and proprioceptive training. She will increase activities as tolerated and see me back as needed. Orders: Orders PT Evaluation and Treatment Today M19.072 - Primary osteoarthritis, left ankle and foot Patient Instructions: Scribed for Mikki An PA-C, by Mike Newman medical coordinator pesticide use, on 06/16/2024 at 9:00 AM EST.? I, Mikki An PA-C, have personally reviewed and agree with the information entered by the scribe. Coding Level of Care Code Est Pt Level 3 (34031) Diagnoses Primary osteoarthritis of left ankle M19.072 Osteoarthritis type: primary
[2024-06-16 09:06] VITALS: BMI 32.8
== END 2024-06-16 10:02 | disposition home or self-care (01) ==
PROVIDERS: PCP Internal Medicine; Visit Provider Physician Assistant
DX: M19.072 Primary osteoarthritis, left ankle and foot (principal)
CPT/HCPCS: 99213

== ENCOUNTER 2024-08-22 11:00 | Outpatient (RCR) | payer MEDICARE, OTHER, SELFPAY ==
--- NOTE | 2024-07-11 13:08 | MHC.PT.EP ---
[facility] [place] Office [place] Office [place] Office [address] Liudmila Carrasco [address] [phone] F: [phone] F: [phone] F: [phone] F: [phone] Physical Therapy Plan of Care Date of Evaluation: 07/11/24 Date of Surgery: Diagnosis: OA LEFT ANKLE AND FOOT Assessment: 84 YO FEMALE REF TO PT FOR LEFT ANKLE AND FOOT OA, EXACERBATED 05/25/24-> TEMPORARILY IN A WALKING BOOT, USING A ROLLATOR, RESIDES ALONE AT PROV PLACE. THE Pt HAS TAVON (+) BUNIONS , LIMITED DF AND HIP ROTAT, GENERAL WEAKNESS IN TAVON LEs, DECR POSTURAL AWARENESS, AND ALTERED GAIT WITH PAIN IN HER Lt ANKLE AND PLANTAR ASPECT OF HER FOOT. FUNCTIONALLY, THE Pt HAS DECR DARIEL TO STANDING, INCR WALKING, AND TRANSITIONAL MVMTS-> INCR UEs COMPEN AND DECR SAFETY AWARENESS W STAND-> SIT. THE Pt AGREES W PT POC AND ADDRESSING THE ABOVE FINDINGS, ULTIMATELY IMPROVING HER LEVEL OF INDEP. Frequency and Duration: The patient will be seen 2 x WK x 5 WKS Short Term Goals: IMPROVE HIP FLEXOR AND CALF FLEXIB TO ALLOW MORE NEUTRAL POSTURE W ADLS/AMB INITIATE HEP DECR Lt ANKLE EDEMA AND PAIN TO 2-3/10 Care Home Goals: Pt INDEP W HEP AND SELF SX MGMT TECHN Pt DEMON EFFICIENT GAIT W LEAST RESTRICTIVE ASST DEVICE ON LEVEL GROUND AND STAIRS IMPROVED ADL PERF/ DARIEL EVIDENT W IMPROVED LEFI (22/80 AT EVAL) LEs STRENGTH IMPROVED BY 1 GRADE Treatment Plan: Modalities to reduce pain, spasms and effusion. Manual therapy to restore motion and function. Therapeutic exercise to improve strength and flexibility. Neuromuscular re-education for posture and balance. Therapeutic activities to return to functional activities of daily living. Electronically signed by: ZEV MERCADO,PT Please sign and return to therapist. Thank you for your referral.
--- NOTE | 2024-08-22 12:07 | MHC.PT.DC ---
[facility] [place] Office [place] Office [place] Office [address] Liudmila Carrasco [address] [phone] F: [phone] F: [phone] F: [phone] F: [phone] Physical Therapy Discharge Report Diagnosis: OA LEFT ANKLE AND FOOT Date of Surgery: Date of Evaluation: 07/11/24 Date of Discharge: 08/22/24 Treatments to Date: 9 Cancellations to Date: 0 No Shows to Date: 0 Discharge Status: Achieved Goals Improved Function Independent with HEP Discharge Summary: THE Pt HAS PROGRESSED NOCELY IN PT-> SHE INIT PRESENTED W ANTALGIC GAIT MECH AND USING A WALKER-> CURRENTLY , CHRISTIANNE DISPLAYS MORE ERECT POSTURE AND SHE AMB W A CANE-> SHE NOTED SHE CAN WALK 20' W/O ANY ASST DEVICES. SHE IS INDEP AND COMPLIANT W HER PROGRESSIVE HEP- HER LEFT ANKLE PAIN IS RELATIVELY RESOLVED, HOWEVER, IF SHE WEARS UNSUPPORTIVE FOOTWEAR SHE WILL HAVE SOME LEFT FOOT SORENESS. SHE HAS MET HER PT GOALS->IMPROVED STRENGTH IN LEs, ADV FUNCT MOB, RESOLVED PAIN, AND HER LEFI SCAORE IS NOW 41/80 -> AT EVAL 22/. Electronically signed by: ZEV MERCADO,PT Please sign and return to therapist. Thank you for your referral.
== END 2024-08-22 12:09 | disposition home or self-care (01) ==
LOC: HO.PT 11:00
PROVIDERS: PCP Internal Medicine; Visit Provider Physician Assistant
DX: M19.072 Primary osteoarthritis, left ankle and foot (principal)
CPT/HCPCS: 97110; 97162; 97535

== ENCOUNTER 2024-08-25 09:47 | Outpatient (AMB) | payer MEDICARE, OTHER, SELFPAY ==
[2024-08-25 09:57] VITALS: BP 132/76; PULSE 76; O2SAT 95; BMI 32.3
--- NOTE | 2024-08-25 09:57 | MHC.PC.OV ---
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 Accompanied by: Self / Same As Patient Allergies codeine Allergy (Verified 08/25/24 10:02) Hallucinations meperidine [From Demerol] Allergy (Verified 08/25/24 10:02) Hallucinations Iodinated Contrast Media [IV Contrast Dye] Adverse Reaction (Verified 08/25/24 10:02) Anxiety Medication List - Last Reconciled 08/25/24 by Tee Estrella MD albuterol sulfate 90 mcg/actuation 2 inhalations inhalation Q4-6H betamethasone, augmented 0.05 % 1 appl topical DAILY PRN blood sugar diagnostic ([employer] Ultra Test strips) 2x day cane Quad cane lisinopril 5 mg PO DAILY metformin 500 mg PO BID 90 days Tobacco use date assessed: 12/25/23 Fall risk assessment: 1 Fall in past year (February 2024) Last assessed Fall Risk: 08/25/24 Dental Screening Dental Screen Date: 01/31/24 HPI 4mof\u HPI Details chronic edema right lower leg; interested in lymphedema clinic [facility] Medical History COVID-19 virus infection (~03/15/22) Chondroma Encounter to establish care Surgical History History of cataract surgery History of eye surgery History of cholecystectomy Social History Housing: Assisted Living Facility Alcohol intake: current Alcohol intake frequency: holidays/special occasions only Patient Tobacco Use Status: Former Tobacco user Tobacco use type: Cigarette Cigarettes Per Day: 3 e-Cigarette/Vaping Use: Never Used Second Hand Smoke Exposure: No service: No Current occupational status: retired Cognitive needs: Yes (cane) Hearing needs: Yes ( having trouble hearing) Vision needs: Yes (glasses) Questionnaire PHQ-9 Over the last 2 weeks, how often have you been bothered by any of the following problems? 1. Little interest or pleasure in doing things: not at all 2. Feeling down, depressed, or hopeless: not at all 3. Trouble falling or staying asleep, or sleeping too much: not at all 4. Feeling tired or having little energy: not at all 5. Poor appetite or overeating: not at all 6. Feeling bad about yourself - or that you are a failure or have let yourself or your family down: not at all 7. Trouble concentrating on things, such as reading the newspaper or watching television: not at all 8. Moving or speaking so slowly that other people could have noticed. Or the opposite - being so fidgety or restless that you have been moving around a lot more than usual: not at all 9. Thoughts that you would be better off or of hurting yourself in some way: not at all Total score: 0 Depression Screening Interpretation: Negative Depression Screening Done: Yes 58924 - PHQ-9 Billing: Yes Source: Developed by Drs. Trip Schneider, Claudia Hernandez, Dante Milan and colleagues, with an educational mohamud from [employer]. Thrive Questionnaire Date Thrive assessed: 12/25/23 Are you currently unemployed and looking for a job?: No AUDIT C Alcohol Use Questionnaire (AUDIT-C) 2. How many drinks containing alcohol do you have on a typical day when you are drinking?: 1 or 2 3. How often do you have six or more drinks on one occasion?: Never Total Score: 0 MELINDA-7 AMB Questionnaire MELINDA-7 Date MELINDA - 7 assessed: 12/25/23 Source: Developed by Drs. Trip Schneider, Claudia Hernandez, Dante Milan and colleagues, with an educational mohamud from [employer]. Review of Systems Const Denies chills, Denies headache(s) and Denies weight loss ENT Denies headache(s) Card Denies chest pain, Denies syncope, Denies irregular heart rhythm and Denies dyspnea Resp Denies chest congestion, Denies cough and Denies dyspnea GI Denies abdominal pain, Denies change in stool character, Denies nausea and Denies vomiting Musc Denies deformity and Denies joint swelling Neuro Denies syncope and Denies headache(s) Physical exam (Primary Care) Vital Signs: Last Vital Signs Pulse 76 08/25/24 09:57 BP 132/76 08/25/24 09:57 Pulse Ox 95 08/25/24 09:57 Oxygen Delivery Method Room Air 08/25/24 09:57 BMI result Body Mass Index 32.3 Tobacco/Smoking Status: Tobacco use Status Tobacco use date assessed 12/25/23 08/25/24 10:00 Patient Tobacco Use Status Former Tobacco user 08/25/24 10:00 Tobacco use type Cigarette 08/25/24 10:00 e-Cigarette/Vaping Use Never Used 08/25/24 10:00 PHQ-9: PHQ-9 Score PHQ-9: Total score 0 08/25/24 10:31 Depression Screening Interpretation: Negative Thrive Assessment: Date of Thrive Assessment Date Thrive assessed 12/25/23 08/25/24 10:00 Const General: cooperative, comfortable, no acute distress and alert Neck Neck: Yes no lymphadenopathy Thyroid: Thyroid normal Resp Effort & Inspection: normal respiratory effort Auscultation: clear to auscultation bilaterally Percussion: percussion normal Cardio Jugular venous distension: no JVD Palpation: normal PMI Rate: regular rate Rhythm: regular rhythm Heart sounds: S1 normal heart sound present and S2 normal heart sound present GI Inspection: Yes normal to inspection Palpation (GI): No hepatosplenomegaly present Skin General skin exam: no rashes or lesions noted Extrem Other: 2-3+ edema right lower leg Results AMB Hemoglobin A1c AMB Hemoglobin A1c 6.4 % Last Edit by Darlyn Manjarrez CMA on 08/25/24 10:08 Results Reviewed Results Reviewed: Laboratory Last Values Hgb A1c (Clinic) 6.4 % (4.0-6.0) H 08/25/24 10:05 Coding Level of Care Code Est Pt Level 3 (18116) Diagnoses Leg edema, left R60.0 Assessment & Plan Assessment & Plan (1) Leg edema, left: Code(s): R60.0 - Localized edema Category: Medical Plan: ref OT Orders: Orders Hemoglobin A1c Today R73.9 - Hyperglycemia, unspecified AMB Hemoglobin A1c Today E11.9 - Type 2 diabetes mellitus without complications OT Evaluation and Treatment Today R60.0 - Localized edema Lipid Panel Today Z13.220 - Encounter for screening for lipoid disorders Thyroid Stimulating Hormone Today Z13.29 - Encounter for screening for other suspected endocrine disorder Complete Blood Count Auto Diff Today Z13.0 - Encounter for screening for diseases of the blood and blood-forming organs and certain disorders involving the immune mechanism Comprehensive [place]. Panel Fast Today Z13.9 - Encounter for screening, unspecified
== END 2024-08-25 10:25 | disposition home or self-care (01) ==
PROVIDERS: PCP Internal Medicine; Visit Provider Internal Medicine
DX: R60.0 Localized edema (principal); E11.9 Type 2 diabetes mellitus without complications

== ENCOUNTER → 2024-08-25 09:47 | Outpatient (BNVA) | payer MEDICARE, OTHER, SELFPAY | PROVIDERS: PCP Internal Medicine; Visit Provider Internal Medicine | DX: R60.0 Localized edema (principal); R73.9 Hyperglycemia, unspecified | CPT/HCPCS: 83036; 96127; 99212 ==

== ENCOUNTER 2024-12-29 11:10 | Outpatient (RCR) | payer MEDICARE, OTHER, SELFPAY ==
--- NOTE | 2024-11-17 12:57 | MHC.OT.OLE ---
[address] [phone] F: [phone] Occupational Therapy Lymphedema Evaluation Patient Name: Nicky Coffman Diagnosis: (B)LE lymphedema Date of Onset: Attending Provider: Tee Estrella Prescribed Treatment: Follow Up Appointment: History of Current Condition: Patient is an 84 y/o women who was referred to skilled OT/ Lymphedema therapy for pain and swelling of the LEs. Patient reports her PLOF as (I)ADLs and light IADLs, she lives at [facility] which is an (I) living facility. 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 She states the swelling causes her ankle to be painful, have impaired balance, is unable to sleep through the night and going to the grocery store is difficulty. Significant Medical History: Precautions/Contraindications: NO SPECIFIC, ALTERED GAIT DUE TO Lt ANKLE PAIN Patient Goals: Hand Dominance: Observations: Outcome Measures: Prior Level of Function and Occupation Living Situation: lives alone Family and/or Social Report: 4 children Self-Halfway Support: (I) Employment Status: Retired Leisure Activities/Hobbies: Current Level of Function and Occupation Self-Care and Home Care: min (A)ADLs/ IADLs difficulty with finding shoes that fit and donning/doffing socks and shoes Employment Status: Leisure Activites/Hobbies: Driving: Sleeping: Vision: Balance: Pain Assessment Pain Score: Pain Scale Used: Pain Location and Description: Aggravating Factors: Alleviating Factors: Skin and Soft Tissue Assessment Skin and Soft Tissue: Comments: (B)LE: intact skin, dry, with pitting from foot to knee Nerve assessment Ulnar Nerve: Median Nerve: Radial Nerve: Comments: Sensory Assessment Temperature: Light Touch: Proprioception: Vibration: Comments: LLIS= 41% ROM MMT Lymph volume measurements Edema Assessment Upper Extremity: Lower Extremity: Comments: Dexterity Assessment Dexterity: Comments: Special Tests Comments: AROM (PROM) Strength Lower Extremity Hip Flexion: Knee Flexion: Knee Extension: Ankle Dorsiflexion: Ankle Plantarflexion: Ankle Eversion: Ankle Inversion: Comments: Cervical Flexion: Extension: Lateral Flexion: Rotation: Comments: Shoulder Flexion: Extension: Abduction: Internal Rotation: External Rotation: Comments: Flexion: Extension: Abduction: Internal Rotation: External Rotation: Comments: Elbow Flexion: Extension: Forearm Pronation: Forearm Supination: Comments: Flexion: Extension: Forearm Pronation: Forearm Supination: Comments: Wrist Flexion: Extension: Ulnar Deviation: Radial Deviation: Comments: Flexion: Extension: Ulnar Deviation: Radial Deviation: Comments: Thumb Thumb CMC Flexion: Thumb MCP Flexion: Thumb IP Flexion: Radial Abduction: Palmar Abduction: Opposition: Comments: Digits Index MCP: PIP: DIP: Long MCP: PIP: DIP: Ring MCP: PIP: DIP: Small MCP: PIP: DIP: Comments: Gross Grasp: Lateral Pinch: Two-Point Pinch: Three-Jaw Tong: Comments: Patient Education Primary Language: Provisioning Analyst Required: Current Knowledge: Teaching Method: Education Needs Identified on Evaluation: How did patient/family demonstrate learning? Barriers to Learning: Readiness for Learning: Who was educated? Comments: Plan of Care Assessment: (R)367.2cm; (L)392.3cm differnce 6.84% difference STG Duration: 2 weeks Short Term Goals: Patient will decrease (R)LE lymph volume by 10% Patient will decrease (L)LE lymph volume by 10% LTG Duration: 4 weeks Fdc Goals: Patient will be (I) with donning/doffing compression garments Patient will be (I) with HEP Patient will be (I) with skin care/hygiene routine Frequency and Duration: The patient will be seen 4x a week for 2 weeks then decrease to 3x a week for 2 weeks Treatment Plan: Treatment Plan Comments: skilled OT eval and treatment, CDT Lymphedema Treatment Plan: Compression Bandaging Exercise: Stretching, strengthening, manual therapy Family/Caregiver Training Manual Lymphatic Drainage Referral for compression garment and instructions for donning/doffing Self Care Training: bandaging, skin care, self massage Skin Care Education Wound Care Needs Lymphedema Treatment Plan Comments: CDT Electronically Signed By: TRINA Mesa/CHRISTOPHER Mccall Reviewed/agree with student documentation: Therapist: Please sign and return to therapist, thank you for your referral.
--- NOTE | 2024-12-30 11:12 | MHC.OT.DC ---
[address] [phone] F: [phone] Occupational Therapy Discharge Note Patient Name: Nicky Coffman Provider: Tee Estrella Diagnosis: (B)LE lymphedema Date of Surgery: Date of Evaluation: 11/15/24 Date of Discharge: Treatments to Date: 16 Cancellations to Date: No Shows to Date: Discharge Status: Achieved Goals Improved Function Independent with HEP Discharge Summary: Patient is d/c from skilled OT/lymphedema therapy as patient has achieved her goals. She has decreased her lymph volume, is (I) in her self manual lymph drainage, HEP and donning/doffing of compression garments. Thank you for your referral, patient was a pleasure to work with. Electronically Signed By: TRINA Mesa/Stefany, CLT Reviewed/agree with student documentation: Therapist: Please Sign and return to therapist, thank you for your referral.
== END 2024-12-30 11:25 | disposition home or self-care (01) ==
LOC: HO.OT 11:10
PROVIDERS: PCP Internal Medicine; Visit Provider Internal Medicine
DX: R60.0 Localized edema (principal)
CPT/HCPCS: 97110; 97140; 97165; 97535

== ENCOUNTER 2025-05-28 12:12 | Outpatient (AMB) | payer MEDICARE, OTHER, SELFPAY ==
[2025-05-28 12:25] VITALS: BP 128/72; BMI 30.9
--- NOTE | 2025-05-28 12:25 | MHC.PC.OV ---
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: No Accompanied by: Self / Same As Patient Allergies codeine Allergy (Verified 05/28/25 12:42) Hallucinations meperidine (From Demerol) Allergy (Verified 05/28/25 12:42) Hallucinations Iodinated Contrast Media (IV Contrast Dye) Adverse Reaction (Verified 05/28/25 12:42) Anxiety Medication List - Last Reconciled 05/28/25 by Weston Gordon MD albuterol sulfate 90 mcg/actuation 2 inhalations inhalation Q4-6H betamethasone, augmented 0.05 % 1 appl topical DAILY PRN blood sugar diagnostic ([employer] Ultra Test strips) 2x day cane Quad cane ketoconazole 2% 1 appl topical BID PRN lisinopril 5 mg PO DAILY metformin 500 mg PO BID 90 days Tobacco use date assessed: 05/28/25 Fall risk assessment: No Falls in past year Last assessed Fall Risk: 05/28/25 Dental Screening Dental Screen Date: 05/28/25 Did you have a dental visit in the last 12 months?: Yes Did you have a dental problem in the last 6 months where you did not have access to dental care?: No Was dental information given to patient?: Patient has dentist HPI DALI Dr Estrella HPI Details Patient comes in today for her follow-up visit - his transferring over from Dr. Estrella, who retired from the practice a few months ago Patient states that she currently feels okay She denies any headaches or dizziness Denies any chest pains, no shortness of breath No nausea/vomiting, no abdominal pain No change in bowel habits noted Needs her Rx for Lisinopril refilled Patient states that she has been diagnosed with diabetes since around the year 1999 States that she stays very active and goes swimming everyday during the spring and summer months when the swimming pools are open [facility] Medical History (Updated 05/29/25 @ 04:55 by Weston Gordon MD) Asthma Obesity (BMI 30-39.9) Vitamin D deficiency Mixed hyperlipidemia COVID-19 virus infection (~03/15/22) Chondroma Encounter to establish care Surgical History History of cataract surgery History of eye surgery History of cholecystectomy Social History Housing: Assisted Living Facility Alcohol intake: current Alcohol intake frequency: holidays/special occasions only Patient Tobacco Use Status: Former Tobacco user Tobacco use type: Cigarette Cigarettes Per Day: 3 e-Cigarette/Vaping Use: Never Used Second Hand Smoke Exposure: No service: No Current occupational status: retired Cognitive needs: Yes (cane) Hearing needs: Yes ( having trouble hearing) Vision needs: Yes (glasses) Questionnaire PHQ-9 Over the last 2 weeks, how often have you been bothered by any of the following problems? 1. Little interest or pleasure in doing things: not at all 2. Feeling down, depressed, or hopeless: not at all 3. Trouble falling or staying asleep, or sleeping too much: several days 4. Feeling tired or having little energy: not at all 5. Poor appetite or overeating: not at all 6. Feeling bad about yourself - or that you are a failure or have let yourself or your family down: not at all 7. Trouble concentrating on things, such as reading the newspaper or watching television: not at all 8. Moving or speaking so slowly that other people could have noticed. Or the opposite - being so fidgety or restless that you have been moving around a lot more than usual: not at all 9. Thoughts that you would be better off or of hurting yourself in some way: not at all Total score: 1 Depression Screening Interpretation: Negative Depression Screening Done: Yes 87236 - PHQ-9 Billing: Yes Source: Developed by Drs. Trip Schneider, Claudia Hernandez, Dante Milan and colleagues, with an educational mohamud from [employer]. Thrive Questionnaire Date Thrive assessed: 05/21/25 I am a: Patient What is your living situation today?: I have a steady place to live Within the past 12 months, did the food you bought not last and you didn't have the money to get more?: Never true Within the past 12 months, did you worry whether your food would run out before you got money to buy more?: Never true Do you have trouble paying for medicines?: No Do you have trouble getting transportation to medical appointments?: No Do you have trouble paying your heating and electricity bill?: No Do you have trouble taking care of your child, family member or friend?: No Do you have trouble with day-to-day activities such as bathing, preparing meals, shopping, managing finances, etc.?: No Are you currently unemployed and looking for a job?: No Are you interested in more education?: No Please select the resources that you would like help with: None Currently or been in a relationship where the following occur: No concerns reported THRIVE Score: 0 AUDIT C Alcohol Use Questionnaire (AUDIT-C) 1. How often do you have a drink containing alcohol?: 4 or more times a week 2. How many drinks containing alcohol do you have on a typical day when you are drinking?: 1 or 2 3. How often do you have six or more drinks on one occasion?: Never Total Score: 4 Score Reviewed/Action Taken: Yes MELINDA-7 AMB Questionnaire MELINDA-7 Date MELINDA - 7 assessed: 12/25/23 Feeling nervous, anxious, or on edge: 0 = Not at all Not being able to stop or control worryin = Not at all Worrying too much about different things: 0 = Not at all Trouble relaxin = Not at all Being so restless that it is hard to sit still: 0 = Not at all Becoming easily annoyed or irritable: 0 = Not at all Feeling afraid as if something awful might happen: 0 = Not at all Total MELINDA-7 score (0-4 normal; 5-9 mild; 10-14 moderate; 15-21 severe): 0 Source: Developed by Drs. Trip Schneider, Claudia Hernandez, Dante Milan and colleagues, with an educational mohamud from [employer]. Review of Systems Const Denies chills, Denies fatigue, Denies fever(s) and Denies headache(s) ENT Denies dysphagia, Denies dizziness, Denies otalgia, Denies headache(s), Denies neck pain, Denies odynophagia and Denies sore throat Card Denies chest pain, Denies palpitations and Denies dyspnea Resp Denies chest congestion, Denies cough and Denies dyspnea GI Denies abdominal pain, Denies constipation, Denies dysphagia, Denies heartburn, Denies diarrhea, Denies nausea, Denies odynophagia and Denies vomiting Denies difficulty voiding, Denies nocturia and Denies dysuria Musc Denies back pain and Denies neck pain Skin/Breast Denies rash Neuro Denies dizziness and Denies headache(s) Endo Denies fatigue and Denies palpitations Physical exam (Primary Care) Vital Signs: Last Vital Signs BP 128/72 05/28/25 12:25 BMI result Body Mass Index 30.9 Tobacco/Smoking Status: Tobacco use Status Tobacco use date assessed 05/28/25 05/28/25 12:32 Patient Tobacco Use Status Former Tobacco user 05/28/25 12:29 Tobacco use type Cigarette 05/28/25 12:29 e-Cigarette/Vaping Use Never Used 05/28/25 12:29 PHQ-9: PHQ-9 Score PHQ-9: Total score 1 05/28/25 12:43 Depression Screening Interpretation: Negative Thrive Assessment: Date of Thrive Assessment Date Thrive assessed 05/21/25 05/28/25 12:29 Currently or been in a relationship where the following occur: No concerns reported Const General: no acute distress and alert HENMT Ears: TM's normal bilaterally and EAC's normal Throat: Yes posterior oropharynx normal and Yes tonsils normal (no TP congestion) Neck Neck: Yes supple and No lymphadenopathy Thyroid: Thyroid normal Resp Auscultation: clear to auscultation bilaterally, no rales and no wheezes Cardio Rate: regular rate Rhythm: regular rhythm Heart sounds: no murmurs GI Palpation (GI): Soft to palpation and nontender Auscultation: normal bowel sounds General: Yes no CVA tenderness Back/Spine/Pelvis Back: no CVA tenderness Thoracic/Lumbar Spine: No lumbar spinal tenderness Skin Rashes: no rashes Extrem General: Yes no clubbing, cyanosis or edema Results AMB Hemoglobin A1c AMB Hemoglobin A1c 6.2 % Last Edit by HILARIA Del Rio on 05/28/25 12:45 Results Reviewed Results Reviewed: Laboratory Last Values Hgb A1c (Clinic) 6.2 % (4.0-6.0) H 05/28/25 12:34 Coding Level of Care Code Est Pt Level 4 (16010) Diagnoses Essential hypertension I10 Type 2 diabetes mellitus without complication, without long-term current use of insulin E11.9 Diabetes mellitus type: type 2 Diabetes mellitus snf insulin use: without vermin exterminator use Diabetes mellitus complication status: without complication Mixed hyperlipidemia E78.2 Mild intermittent asthma without complication J45.20 Asthma severity: mild Asthma persistence: intermittent Asthma complication type: uncomplicated Vitamin D deficiency E55.9 Obesity (BMI 30-39.9) E66.9 Additional Codes PHQ-9 - 39210 - PHQ-9 Billing: Yes ([id number]) Assessment & Plan Assessment & Plan (1) Essential hypertension: Code(s): I10 - Essential (primary) hypertension Category: Medical Plan: Reinforced low-sodium diet - goal is systolic BP of at least 130-140 mm or less Continue Lisinopril 5 mg QD - Rx refilled (2) Diabetes mellitus: Code(s): E11.9 - Type 2 diabetes mellitus without complications Category: Medical Qualifiers: Diabetes mellitus type: type 2 Diabetes mellitus snf insulin use: without vermin exterminator use Diabetes mellitus complication status: without complication Qualified Code(s): E11.9 - Type 2 diabetes mellitus without complications Plan: In-office HgbA1c today is at 6.2% Reinforced diabetic diet Continue metformin 500 mg BID Patient states that she also swims every day during the spring and summer months when the pool is open and this helps her stay active and helps control her diabetes as well (3) Mixed hyperlipidemia: Code(s): E78.2 - Mixed hyperlipidemia Category: Medical Plan: Reinforced low-cholesterol diet Patient's serum triglyceride level was at 180 when last checked in 2021; total cholesterol was at 199 mg/dL and LDL cholesterol 119 mg/dL both of which were acceptable range Will have patient recheck her labs and fasting lipids in 4 months for follow-up (4) Asthma: Code(s): J45.909 - Unspecified asthma, uncomplicated Category: Medical Qualifiers: Asthma severity: mild Asthma persistence: intermittent Asthma complication type: uncomplicated Qualified Code(s): J45.20 - Mild intermittent asthma, uncomplicated Plan: Controlled Continue albuterol HFA 1-2 inhalations every 6 hours as needed (5) Vitamin D deficiency: Code(s): E55.9 - Vitamin D deficiency, unspecified Category: Medical Plan: Her vitamin-D level was also low when last checked in 2021 Will have her recheck her vitamin-D level as well in 4 months for follow-up (6) Obesity (BMI 30-39.9): Code(s): E66.9 - Obesity, unspecified Category: Medical Plan: Reinforced diet/exercise as tolerated/lose weight Plan Follow up in 4 months Orders: Orders AMB Hemoglobin A1c 05/28/25 E11.9 - Type 2 diabetes mellitus without complications Complete Blood Count Auto Diff 09/12/25 D64.9 - Anemia, unspecified Comprehensive [place]. Panel Fast 09/12/25 E78.00 - Pure hypercholesterolemia, unspecified Microalbumin, Random (w Creat) 09/12/25 E11.9 - Type 2 diabetes mellitus without complications Vitamin B12 and Folate 09/12/25 E53.8 - Deficiency of other specified B group vitamins Hemoglobin A1c 09/12/25 E11.9 - Type 2 diabetes mellitus without complications Lipid Panel 09/12/25 E78.00 - Pure hypercholesterolemia, unspecified TSH reflex Free T4 09/12/25 E78.00 - Pure hypercholesterolemia, unspecified UA CC w/rflx Micro + Cult 09/12/25 R30.0 - Dysuria Vitamin D 25-OH Total 09/12/25 E55.9 - Vitamin D deficiency, unspecified Medications: Changed From lisinopril 5 mg PO DAILY 90 tabs 1RF To lisinopril 5 mg PO DAILY 90 tabs 1RF 90 days
== END 2025-05-28 12:57 | disposition home or self-care (01) ==
LOC: HO.HMCH 12:13
PROVIDERS: PCP Internal Medicine; Visit Provider Internal Medicine
DX: E11.9 Type 2 diabetes mellitus without complications (principal)

== ENCOUNTER → 2025-05-28 12:12 | Outpatient (BNVA) | payer MEDICARE, OTHER, SELFPAY | PROVIDERS: PCP Internal Medicine; Visit Provider Internal Medicine | DX: I10 Essential (primary) hypertension (principal); E11.9 Type 2 diabetes mellitus without complications; E55.9 Vitamin D deficiency, unspecified; E78.2 Mixed hyperlipidemia; J45.20 Mild intermittent asthma, uncomplicated; E66.9 Obesity, unspecified; Z68.30 Body mass index [BMI] 30.0-30.9, adult; Z71.3 Dietary counseling and surveillance | CPT/HCPCS: 83036; 96127; 99212 ==

== ENCOUNTER 2025-07-15 10:00 | Outpatient (AMB) | payer MEDICARE, OTHER, SELFPAY ==
[2025-07-15 10:04] VITALS: BP 140/68; PULSE 71; RESP 18; TEMP 36; O2SAT 93; BMI 31.9
--- NOTE | 2025-07-15 10:04 | MHC.PC.OV ---
Vital Signs 07/15/25 10:04 Height 5 ft 5 in Weight 192 lb BMI 31.9 BP 140/68 H Blood Pressure Location Lt brachial Position Sitting Respiration 18 Pulse 71 Pulse Source Pulse Oximeter Temp 96.8 F Temp Source Temporal Artery Scan Pulse Oximetry (%) 93 Oxygen Delivery Method Room Air Intake Visit Reasons: Skin reaction Gas Technician Required: No Accompanied by: Self / Same As Patient Allergies codeine Allergy (Verified 07/15/25 10:15) Hallucinations meperidine (From Demerol) Allergy (Verified 07/15/25 10:15) Hallucinations Iodinated Contrast Media (IV Contrast Dye) Adverse Reaction (Verified 07/15/25 10:15) Anxiety Medication List - Last Reconciled 07/15/25 by Reji Agustin PA-C albuterol sulfate 90 mcg/actuation 2 inhalations inhalation Q4-6H PRN betamethasone, augmented 0.05 % 1 appl topical DAILY PRN blood sugar diagnostic (ExosectTouch Ultra Test strips) 2x day cane Quad cane ketoconazole 2% 1 appl topical BID PRN lisinopril 5 mg PO DAILY 90 days metformin 500 mg PO BID 90 days Tobacco use date assessed: 07/15/25 Fall risk assessment: No Falls in past year Last assessed Fall Risk: 07/15/25 Dental Screening Dental Screen Date: 07/15/25 Did you have a dental visit in the last 12 months?: Yes Did you have a dental problem in the last 6 months where you did not have access to dental care?: No Was dental information given to patient?: Patient has dentist HPI Skin reaction HPI Details The patient is an 85-year-old female presenting with a skin condition suspected to be psoriasis. The skin condition began approximately two weeks ago, with new areas appearing in the last week. The patient reports itching and burning sensations, particularly at night, which disrupts sleep. The patient has a history of psoriasis dating back to 1978, initially diagnosed as stress-related. She has experienced previous outbreaks, with the most recent significant flare occurring after a period of remission. The patient has tried [id number] treatments such as calamine lotion and diphenhydramine without relief. The patient also has a history of shingles, which occurred eight years ago and was mild, affecting one side of the body. She has not experienced any new dietary or environmental changes that could account for the current skin condition. The patient reports living in a senior residence for the past four years, which has been a source of stress. She denies any recent significant stressors but acknowledges the general stress of living in a communal environment. [facility] Medical History Asthma Obesity (BMI 30-39.9) Vitamin D deficiency Mixed hyperlipidemia COVID-19 virus infection (~03/15/22) Chondroma Encounter to establish care Surgical History History of cataract surgery History of eye surgery History of cholecystectomy Social History Housing: Assisted Living Facility Alcohol intake: current Alcohol intake frequency: holidays/special occasions only Patient Tobacco Use Status: Former Tobacco user Tobacco use type: Cigarette Cigarettes Per Day: 3 e-Cigarette/Vaping Use: Never Used Second Hand Smoke Exposure: No service: No Current occupational status: retired Cognitive needs: Yes (cane) Hearing needs: Yes ( having trouble hearing) Vision needs: Yes (glasses) Questionnaire PHQ-9 Over the last 2 weeks, how often have you been bothered by any of the following problems? 1. Little interest or pleasure in doing things: not at all 2. Feeling down, depressed, or hopeless: not at all 3. Trouble falling or staying asleep, or sleeping too much: several days 4. Feeling tired or having little energy: not at all 5. Poor appetite or overeating: not at all 6. Feeling bad about yourself - or that you are a failure or have let yourself or your family down: not at all 7. Trouble concentrating on things, such as reading the newspaper or watching television: not at all 8. Moving or speaking so slowly that other people could have noticed. Or the opposite - being so fidgety or restless that you have been moving around a lot more than usual: not at all 9. Thoughts that you would be better off or of hurting yourself in some way: not at all Total score: 1 Depression Screening Interpretation: Negative Depression Screening Done: Yes 62303 - PHQ-9 Billing: Yes Source: Developed by Drs. Trip Schneider, Dante Vides and colleagues, with an educational mohamud from [employer]. Thrive Questionnaire Date Thrive assessed: 07/15/25 I am a: Patient What is your living situation today?: I have a steady place to live Within the past 12 months, did the food you bought not last and you didn't have the money to get more?: Never true Within the past 12 months, did you worry whether your food would run out before you got money to buy more?: Never true Do you have trouble paying for medicines?: No Do you have trouble getting transportation to medical appointments?: No Do you have trouble paying your heating and electricity bill?: No Do you have trouble taking care of your child, family member or friend?: No Do you have trouble with day-to-day activities such as bathing, preparing meals, shopping, managing finances, etc.?: No Are you currently unemployed and looking for a job?: No Are you interested in more education?: No Please select the resources that you would like help with: None Currently or been in a relationship where the following occur: No concerns reported THRIVE Score: 0 AUDIT C Alcohol Use Questionnaire (AUDIT-C) 1. How often do you have a drink containing alcohol?: 4 or more times a week 2. How many drinks containing alcohol do you have on a typical day when you are drinking?: 1 or 2 3. How often do you have six or more drinks on one occasion?: Never Total Score: 4 Score Reviewed/Action Taken: Yes MELINDA-7 AMB Questionnaire MELINDA-7 Date MELINDA - 7 assessed: 07/15/25 Feeling nervous, anxious, or on edge: 0 = Not at all Not being able to stop or control worryin = Not at all Worrying too much about different things: 0 = Not at all Trouble relaxin = Not at all Being so restless that it is hard to sit still: 0 = Not at all Becoming easily annoyed or irritable: 0 = Not at all Feeling afraid as if something awful might happen: 0 = Not at all Total MELINDA-7 score (0-4 normal; 5-9 mild; 10-14 moderate; 15-21 severe): 0 Source: Developed by Drs. Trip Schneider, Dante Vides and colleagues, with an educational mohamud from [employer]. Review of Systems Const Denies headache(s) Eyes Denies loss of vision ENT Denies vertigo, Denies dizziness, Denies headache(s) and Denies sore throat Card Denies chest pain, Denies leg edema and Denies lightheadedness Resp Denies cough, Denies hemoptysis and Denies wheezing GI Denies abdominal pain, Denies melena, Denies constipation, Denies diarrhea and Denies vomiting Denies urinary frequency, Denies dysuria and Denies urinary urgency Musc Denies arthralgias, Denies joint swelling, Denies numbness and Denies tingling Neuro Denies Abnormal speech present, Denies behavioral changes, Denies vertigo, Denies dizziness, Denies headache(s), Denies loss of vision, Denies memory loss, Denies numbness and Denies tingling Psych Denies anxiety, Denies behavioral changes, Denies depression, Denies memory loss and Denies panic attacks Huey/Lymph Denies easy bleeding and Denies easy bruising Aller/Immun Denies wheezing Physical exam (Primary Care) Vital Signs: Last Vital Signs Temp 96.8 F 07/15/25 10:04 Pulse 71 07/15/25 10:04 Resp 18 07/15/25 10:04 BP 140/68 H 07/15/25 10:04 Pulse Ox 93 07/15/25 10:04 Oxygen Delivery Method Room Air 07/15/25 10:04 BMI result Body Mass Index 31.9 Tobacco/Smoking Status: Tobacco use Status Tobacco use date assessed 07/15/25 07/15/25 10:11 Patient Tobacco Use Status Former Tobacco user 07/15/25 10:11 Tobacco use type Cigarette 07/15/25 10:11 e-Cigarette/Vaping Use Never Used 07/15/25 10:11 PHQ-9: PHQ-9 Score PHQ-9: Total score 1 07/15/25 10:11 Depression Screening Interpretation: Negative Thrive Assessment: Date of Thrive Assessment Date Thrive assessed 07/15/25 07/15/25 10:11 Currently or been in a relationship where the following occur: No concerns reported Const General: healthy appearing, no acute distress, alert and awake Nutritional Appearance: well nourished Orientation/consciousness: oriented to person, oriented to place and oriented to time HENMT Ears: TM's normal bilaterally General nose exam: Normal nasal mucous membranes and turbinates present Eyes Conjunctivae: conjunctivae normal Sclerae: sclerae normal Pupils: Equal, round and reactive pupils present Neck Neck: Yes no lymphadenopathy and Yes no JVD Thyroid: Thyroid normal Carotids: no bruits Resp Effort & Inspection: normal respiratory effort and not tachypneic Auscultation: no crackles, no rales, no rhonchi and no wheezes Cardio Rate: regular rate Rhythm: regular rhythm Heart sounds: no murmurs and normal S1 and S2 GI Palpation (GI): Soft to palpation, nontender, no hepatomegaly and no splenomegaly Auscultation: normal bowel sounds Skin Other: NOTED SCATTERED AREAS OF PSORIATIC LIKE SKIN LESIONS OVER HER BACK, ARMS AND TORSO. OVER THE BILATERAL LOWER EXTREMITIES APPEARS TO BE A CHRONIC PSORIATIC PLAQUES General skin exam: dry skin Neuro General: oriented to person, oriented to place and oriented to time Cranial nerves: Yes Equal, round and reactive pupils present Speech: No Abnormal speech present Gait exam (Neuro): Normal gait present Motor exam (neuro): no tremor noted Extrem Right upper extremity: full ROM Left upper extremity: full ROM Right lower extremity: full ROM; no edema Left lower extremity: full ROM; no edema Psych Mental Status: mental status grossly normal Speech and movement: Normal speech and movement present Affect: normal affect Attitude: cooperative Thought process: Normal thought process present Coding Level of Care Code Est Pt Level 3 (69885) Diagnoses Psoriasis L40.9 Additional Codes PHQ-9 - 11397 - PHQ-9 Billing: Yes ([id number]) Assessment & Plan Assessment & Plan (1) Psoriasis: Code(s): L40.9 - Psoriasis, unspecified Category: Medical Plan: The patient will be treated with a topical steroid, betamethasone, to be applied to the most affected areas to reduce inflammation and redness. Additionally, an oral prednisone taper will be prescribed to manage the autoimmune response and reduce the severity of the outbreak. A referral to dermatology will be made for further evaluation and management, including potential biopsies or additional treatments. Orders: Referrals Dermatology Referral L40.9 - Psoriasis, unspecified Medications: New betamethasone dipropionate 0.05% 1 appl topical DAILY 45 grams 0RF 30 days L40.9 - Psoriasis, unspecified prednisone Take 3 tablets x2 days, 2 tablets x2 days, 1 tablet x2 days 10 mg PO DIRECTED 12 tabs 0RF 6 days L40.9 - Psoriasis, unspecified Discontinued betamethasone, augmented 0.05 % Discontinued Reason: Doctor's Order 1 appl topical DAILY PRN 15 grams 0RF rash L40.9 - Psoriasis, unspecified
== END 2025-07-15 10:47 | disposition home or self-care (01) ==
LOC: HO.HMCH 10:01
PROVIDERS: PCP Internal Medicine; Visit Provider Physician Assistant
DX: L40.9 Psoriasis, unspecified (principal)

== ENCOUNTER → 2025-07-15 10:00 | Outpatient (BNVA) | payer MEDICARE, OTHER, SELFPAY | PROVIDERS: PCP Internal Medicine; Visit Provider Physician Assistant | DX: E78.2 Mixed hyperlipidemia (principal); L40.9 Psoriasis, unspecified | CPT/HCPCS: 96127; 99212 ==

== ENCOUNTER 2025-10-05 14:15 | Outpatient (AMB) | payer MEDICARE, OTHER, SELFPAY ==
--- NOTE | 2025-10-05 14:24 | A.OFFPC_ITS ---
Vital Signs 10/05/25 14:25 Height 5 ft 5 in Weight 181 lb 6 oz BMI 30.2 BP 134/56 L Blood Pressure Location Lt brachial Position Sitting Respiration 18 Pulse 89 Pulse Source Pulse Oximeter Temp Source Temporal Artery Scan Pulse Oximetry (%) 97 Oxygen Delivery Method Room Air Intake Visit Reasons: follow up Business Continuity Planner Required: No Allergies codeine Allergy (Verified 10/05/25 14:36) Hallucinations meperidine (From Demerol) Allergy (Verified 10/05/25 14:36) Hallucinations Iodinated Contrast Media (IV Contrast Dye) Adverse Reaction (Verified 10/05/25 14:36) Anxiety Medication List - Last Reconciled 10/05/25 by CAROLA Aguila albuterol sulfate 90 mcg/actuation 2 inhalations inhalation Q4-6H PRN betamethasone dipropionate 0.05% 1 appl topical DAILY 30 days blood sugar diagnostic ([employer] Ultra Test strips) 2x day cane Quad cane ketoconazole 2% 1 appl topical BID PRN lisinopril 5 mg PO DAILY 90 days metformin 500 mg PO BID 90 days Tobacco use date assessed: 10/05/25 Fall risk assessment: 2 + Falls in past year Last assessed Fall Risk: 10/05/25 Dental Screening Dental Screen Date: 10/05/25 Did you have a dental visit in the last 12 months?: Yes Did you have a dental problem in the last 6 months where you did not have access to dental care?: No Was dental information given to patient?: Patient has dentist HPI follow up HPI Details The patient is a 85-year-old female with past medical history of asthma, obesity, vitamin-D deficiency, mixed hyperlipidemia, osteoarthritis, IBS, psoriasis presenting for follow up appointment. The patient is presenting with her daughter. The patient's daughter reports that she was supposed to have a physical today but came to her appointment late and was not able to be seen The patient daughter Reports that she still wanted her mother to be seen, given her ongoing issues with pain, hence; she was able to get this appointment today for her to be evaluated for her ongoing issues Patient reports chronic left ankle pain that feels as if it is going to give out. This caused her to put most of her weight on the right leg causing increased pain in the right knee, right hip and right lower back The patient daughter reports that the patient fell 2 times in the last 2 weeks due to the pain in her legs and the legs feeling like they were giving out, affecting her balance The patient reports that she has done countless amount of physical therapy and would like to hold off on that for now She also reports that she has been doing the exercises on and off that she was taught in physical therapy The patient reports that she also have chronic numbness in her legs that were thought to be neuropathy The patient has recent blood work-these were reviewed with the patient and daughter [facility] Medical History Asthma Obesity (BMI 30-39.9) Vitamin D deficiency Mixed hyperlipidemia COVID-19 virus infection (~03/15/22) Chondroma Encounter to establish care Surgical History History of cataract surgery History of eye surgery History of cholecystectomy Social History Housing: Assisted Living Facility Alcohol intake: current Alcohol intake frequency: holidays/special occasions only Patient Tobacco Use Status: Former Tobacco user Tobacco use type: Cigarette Cigarettes Per Day: 3 e-Cigarette/Vaping Use: Never Used Second Hand Smoke Exposure: No service: No Current occupational status: retired Cognitive needs: Yes (cane) Hearing needs: Yes ( having trouble hearing) Vision needs: Yes (glasses) Questionnaire Thrive Questionnaire Date Thrive assessed: 05/21/25 I am a: Patient What is your living situation today?: I have a steady place to live Within the past 12 months, did the food you bought not last and you didn't have the money to get more?: Never true Within the past 12 months, did you worry whether your food would run out before you got money to buy more?: Never true Do you have trouble paying for medicines?: No Do you have trouble getting transportation to medical appointments?: No Do you have trouble paying your heating and electricity bill?: No Do you have trouble taking care of your child, family member or friend?: No Do you have trouble with day-to-day activities such as bathing, preparing meals, shopping, managing finances, etc.?: No Are you currently unemployed and looking for a job?: No Are you interested in more education?: No Please select the resources that you would like help with: None Currently or been in a relationship where the following occur: No concerns reported THRIVE Score: 0 MELINDA-7 AMB Questionnaire MELINDA-7 Date MELINDA - 7 assessed: 07/15/25 Source: Developed by Drs. Trip Schneider, Claudia Hernandez, Dante Milan and colleagues, with an educational mohamud from [employer]. Review of Systems Narrative Review of Systems - Musculoskeletal: Reports pain in the legs and an issue with the knee. - Neurological: Reports a history of falls. - Gastrointestinal: Reports a history of morning diarrhea. - Cardiovascular: Denies chest pain. Const Denies headache(s) Eyes Denies loss of vision ENT Denies vertigo, Denies dizziness, Denies headache(s) and Denies sore throat Card Denies chest pain, Reports leg edema (Bilateral) and Denies lightheadedness Resp Denies cough, Denies hemoptysis and Denies wheezing GI Denies abdominal pain, Denies melena, Denies constipation, Denies diarrhea and Denies vomiting Denies urinary frequency, Denies dysuria, Reports urinary incontinence (When she is unable to make it time), Reports urinary urgency and Reports other (Reports overactive bladder) Musc Reports back pain (Right lower), Reports arthralgias (Left ankle, right knee, right hip), Denies joint swelling, Reports numbness (BLE) and Denies tingling Neuro Denies Abnormal speech present, Denies behavioral changes, Denies vertigo, Denies dizziness, Denies headache(s), Denies loss of vision, Denies memory loss, Reports numbness (BLE) and Denies tingling Psych Denies anxiety, Denies behavioral changes, Denies depression, Denies memory loss and Denies panic attacks Huey/Lymph Denies easy bleeding and Denies easy bruising Aller/Immun Denies wheezing Physical exam (Primary Care) Vital Signs: Last Vital Signs Resp 18 10/05/25 14:25 Oxygen Delivery Method Room Air 10/05/25 14:25 BMI result Body Mass Index 30.2 Tobacco/Smoking Status: Tobacco use Status Tobacco use date assessed 07/15/25 07/15/25 10:11 Patient Tobacco Use Status Former Tobacco user 07/15/25 10:11 Tobacco use type Cigarette 07/15/25 10:11 e-Cigarette/Vaping Use Never Used 07/15/25 10:11 Thrive Assessment: Date of Thrive Assessment Date Thrive assessed 05/21/25 10/05/25 14:15 Currently or been in a relationship where the following occur: No concerns reported Narrative Physical Exam - Lungs: Clear to auscultation bilaterally. Const General: healthy appearing, no acute distress, alert and awake Nutritional Appearance: well nourished Orientation/consciousness: oriented to person, oriented to place and oriented to time HENMT Ears: TM's normal bilaterally General nose exam: Normal nasal mucous membranes and turbinates present Eyes Conjunctivae: conjunctivae normal Sclerae: sclerae normal Pupils: Equal, round and reactive pupils present Neck Neck: Yes no lymphadenopathy and Yes no JVD Thyroid: Thyroid normal Carotids: no bruits Resp Effort & Inspection: normal respiratory effort and not tachypneic Auscultation: no crackles, no rales, no rhonchi and no wheezes Cardio Rate: regular rate Rhythm: regular rhythm Heart sounds: no murmurs and normal S1 and S2 GI Palpation (GI): Soft to palpation, nontender, no hepatomegaly and no splenomegaly Auscultation: normal bowel sounds General: Yes no CVA tenderness Back/Spine/Pelvis Back: no CVA tenderness Thoracic/Lumbar Spine: No lumbar spinal tenderness Skin General skin exam: no rashes or lesions noted and dry skin Neuro General: oriented to person, oriented to place and oriented to time Cranial nerves: Yes Equal, round and reactive pupils present Speech: No Abnormal speech present Gait exam (Neuro): Antalgic gait present and Assisted gait required (Cane) Motor exam (neuro): no tremor noted Extrem Right upper extremity: full ROM Left upper extremity: full ROM Right lower extremity: full ROM, edema Details: non-pitting and 2+, hip/thigh Details: no tenderness and no swelling and knee Details: swelling; no tenderness Left lower extremity: full ROM, edema Details: non-pitting and 2+ and ankle Details: pitting edema; no tenderness Psych Mental Status: mental status grossly normal Speech and movement: Normal speech and movement present Affect: normal affect Attitude: cooperative Thought process: Normal thought process present Coding Level of Care Code Est Pt Level 4 (21807) Diagnoses Essential hypertension I10 Mixed hyperlipidemia E78.2 Type 2 diabetes mellitus without complication, without long-term current use of insulin E11.9 Diabetes mellitus type: type 2 Diabetes mellitus ocean transportation intermediary insulin use: without chcf use Diabetes mellitus complication status: without complication Obesity (BMI 30-39.9) E66.9 Irritable bowel syndrome, unspecified type K58.9 Irritable bowel syndrome type: unspecified Primary osteoarthritis of right knee M17.11 Osteoarthritis type: primary 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 Laterality: left Right hip pain M25.551 Pain of back and right lower extremity M54.9; M79.604 Time Spent (min) 39 Assessment & Plan Assessment & Plan (1) Essential hypertension: Code(s): I10 - Essential (primary) hypertension Category: Medical Plan: Blood pressure 134/56 today in office Reinforced low-salt diet Continue lisinopril 5 mg daily (2) Mixed hyperlipidemia: Code(s): E78.2 - Mixed hyperlipidemia Category: Medical Plan: Total cholesterol 205, triglycerides 276, LDL 99, HDL 51 Discussed lifestyle modifications including dietary changes and physical activity We will repeat the lipid panel in 4 months (3) Diabetes mellitus: Code(s): E11.9 - Type 2 diabetes mellitus without complications Category: Medical Qualifiers: Diabetes mellitus type: type 2 Diabetes mellitus ocean transportation intermediary insulin use: without ocean transportation intermediary use Diabetes mellitus complication status: without complication Qualified Code(s): E11.9 - Type 2 diabetes mellitus without complications Plan: Hemoglobin A1c 6.8%-goal for the patient age is between 7-8% Reinforced low sugar/carbohydrate diet Continue metformin 500 mg b.i.d. We will repeat fasting glucose and A1c in 4 months (4) Obesity (BMI 30-39.9): Code(s): E66.9 - Obesity, unspecified Category: Medical Plan: Discussed lifestyle modifications including dietary changes and physical activity that is appropriate for the patient to aid losing weight (5) IBS (irritable bowel syndrome): Comment: controlled with diet Code(s): K58.9 - Irritable bowel syndrome, unspecified Category: Medical Qualifiers: Irritable bowel syndrome type: unspecified Qualified Code(s): K58.9 - Irritable bowel syndrome, unspecified Plan: Reports intermittent diarrhea. Otherwise she is doing okay. We will continue to monitor (6) Osteoarthritis of right knee: Code(s): M17.11 - Unilateral primary osteoarthritis, right knee Category: Medical Qualifiers: Osteoarthritis type: primary Qualified Code(s): M17.11 - Unilateral primary osteoarthritis, right knee Plan: Start diclofenac sodium 3% topical. Continue Tylenol p.r.n.. We will add tramadol 25 mg b.i.d. p.r.n. and instruct the patient to only take this medication when absolutely needed (7) Ankle arthritis: Code(s): M19.079 - Primary osteoarthritis, unspecified ankle and foot Category: Medical Qualifiers: Laterality: left Qualified Code(s): M19.072 - Primary osteoarthritis, left ankle and foot Plan: Similarly insert the patient to use diclofenac sodium 3% topical and to continue Tylenol p.r.n.. She may use tramadol 25 mg b.i.d. p.r.n. as needed for severe pain. The patient wants to hold off on PT evaluation for now and we will contact the office if she changes her mind. (8) Right hip pain: Code(s): M25.551 - Pain in right hip Category: Medical Plan: Same as above (9) Pain of back and right lower extremity: Code(s): M54.9 - Dorsalgia, unspecified; M79.604 - Pain in right leg Category: Medical Plan: Lidocaine 5% 1 patch topical ordered. Encouraged the patient to continue stretching exercises learned in physical therapy. Plan Follow up in 4 months. Complete Preordered labs at least a week before appointment. Orders: Orders Complete Blood Count Auto Diff 4 Months E11.9 - Type 2 diabetes mellitus without complications, E55.9 - Vitamin D deficiency, unspecified, E66.9 - Obesity, unspecified, E78.2 - Mixed hyperlipidemia, H35.30 - Unspecified macular degeneration, I10 - Essential (primary) hypertension, J45.20 - Mild intermittent asthma, uncomplicated, K58.9 - Irritable bowel syndrome, unspecified, M17.11 - Unilateral primary osteoarthritis, right knee, M17.12 - Unilateral primary osteoarthritis, left knee Lipid Panel 4 Months E11.9 - Type 2 diabetes mellitus without complications, E55.9 - Vitamin D deficiency, unspecified, E66.9 - Obesity, unspecified, E78.2 - Mixed hyperlipidemia, H35.30 - Unspecified macular degeneration, I10 - Essential (primary) hypertension, J45.20 - Mild intermittent asthma, uncomplicated, K58.9 - Irritable bowel syndrome, unspecified, M17.11 - Unilateral primary osteoarthritis, right knee, M17.12 - Unilateral primary osteoarthritis, left knee TSH reflex Free T4 4 Months E11.9 - Type 2 diabetes mellitus without complications, E55.9 - Vitamin D deficiency, unspecified, E66.9 - Obesity, unspecified, E78.2 - Mixed hyperlipidemia, H35.30 - Unspecified macular degeneration, I10 - Essential (primary) hypertension, J45.20 - Mild intermittent asthma, uncomplicated, K58.9 - Irritable bowel syndrome, unspecified, M17.11 - Unilateral primary osteoarthritis, right knee, M17.12 - Unilateral primary osteoarthritis, left knee UA CC w/rflx Micro + Cult 4 Months E11.9 - Type 2 diabetes mellitus without complications, E55.9 - Vitamin D deficiency, unspecified, E66.9 - Obesity, unspecified, E78.2 - Mixed hyperlipidemia, H35.30 - Unspecified macular degeneration, I10 - Essential (primary) hypertension, J45.20 - Mild intermittent asthma, uncomplicated, K58.9 - Irritable bowel syndrome, unspecified, M17.11 - Unilateral primary osteoarthritis, right knee, M17.12 - Unilateral primary osteoarthritis, left knee Comprehensive [place]. Panel Fast 4 Months E11.9 - Type 2 diabetes mellitus without complications, E55.9 - Vitamin D deficiency, unspecified, E66.9 - Obesity, unspecified, E78.2 - Mixed hyperlipidemia, H35.30 - Unspecified macular degeneration, I10 - Essential (primary) hypertension, J45.20 - Mild intermittent asthma, uncomplicated, K58.9 - Irritable bowel syndrome, unspecified, M17.11 - Unilateral primary osteoarthritis, right knee, M17.12 - Unilateral primary osteoarthritis, left knee Hemoglobin A1c 4 Months E11.9 - Type 2 diabetes mellitus without complications, E55.9 - Vitamin D deficiency, unspecified, E66.9 - Obesity, unspecified, E78.2 - Mixed hyperlipidemia, H35.30 - Unspecified macular degeneration, I10 - Essential (primary) hypertension, J45.20 - Mild intermittent asthma, uncomplicated, K58.9 - Irritable bowel syndrome, unspecified, M17.11 - Unilateral primary osteoarthritis, right knee, M17.12 - Unilateral primary osteoarthritis, left kn ee Vitamin D 25-OH Total 4 Months E11.9 - Type 2 diabetes mellitus without complications, E55.9 - Vitamin D deficiency, unspecified, E66.9 - Obesity, unspecified, E78.2 - Mixed hyperlipidemia, H35.30 - Unspecified macular degeneration, I10 - Essential (primary) hypertension, J45.20 - Mild intermittent asthma, uncomplicated, K58.9 - Irritable bowel syndrome, unspecified, M17.11 - Unilateral primary osteoarthritis, right knee, M17.12 - Unilateral primary osteoarthritis, left knee Medications: New diclofenac sodium 3% (Solaraze) 1 appl topical BID 100 grams 3RF lidocaine 5% leave on most painful area for up to 12 hrs 1 patch topical DAILY 30 ea 3RF tramadol 25 mg PO BID PRN 30 tabs 0RF pain
[2025-10-05 14:25] VITALS: BP 134/56; PULSE 89; RESP 18; O2SAT 97; BMI 30.2
--- OUTSIDE RECORDS SUMMARY | 2025-10-05 17:38 | XMS_ITS | Clinical Summary ---
Author Organization [address] [facility] Address [address] [place] [address] Phone Care Team Providers Care Welfare Supervisor Name Role Phone Physician, No Pcp Primary Care Provider Unavaila ble Encounters Date Type Department Care Team Description 09/30/[address] [facility] - Main Lab [address] [facility] [place] [address] Weston Gordon MD Vitamin D deficiency, unspecified; Deficiency of other specified B group vitamins; Pure hypercholesterolemia, unspecified; Type 2 diabetes mellitus without complications (CMS/HCC V24, CMS/HCC V28); Anemia, unspecified from Last 3 Months Social History Tobacco Use Types Packs/Day Years Used Date Smoking Tobacco: Never Assessed Comments Unknown Sex and Gender Information Value Date Recorded Sex Assigned at Not on file Legal Sex Female 9:59 PM EST Gender Identity Not on file Sexual Orientation Not on file Plan of Treatment Health Maintenance Due Date Last Done Comments Diabetes: Annual Foot Exam 1950 Diabetes: Annual Retina Eye Exam 1950 DTaP,Tdap,and Td Vaccines (1 - Tdap) 1958 Pneumococcal Vaccine: 50+ Ye ars (1 of 2 - PCV) 1958 Zoster Vaccines (1 of 2) 1989 RSV Immunization Adult Patie nts (1 - 1-dose 75+ series) 2014 Depression Screening 11/05/2024 COVID-19 Vaccine (1 - 2024-2 6 season) 2025 Influenza Vaccine (#1) 2025 Falls Risk Assessment 09/30/2025 Medicare Annual Wellness Visit 09/30/2025 Osteoporosis Screening (Bone Density Screening) 09/30/2025 Social Influencers of Health Screening 09/30/2025 Diabetes: Blood Sugar Contro l Test (HGBA1C) 03/30/2026 09/30/2025 Cholesterol Screening (Lipid Panel) 09/30/2030 09/30/2025 HIB Vaccines Aged Out No longer eligi ble based on patient's age to complete this topic HPV Vaccines Aged Out No longer eligi ble based on patient's age to complete this topic Hepatitis A Vaccines Aged Out No long er eligible based on patient's age to complete this topic Hepatitis B Vaccines Aged Out No long er eligible based on patient's age to complete this topic IPV Vaccines Aged Out No longer eligi ble based on patient's age to complete this topic MMR Vaccines Aged Out No longer eligi ble based on patient's age to complete this topic Meningococcal ACWY Vaccine Aged Out N o longer eligible based on patient's age to complete this topic Meningococcal B Vaccine Aged Out No l onger eligible based on patient's age to complete this topic RSV Immunization Patients Un miriam 20 months Aged Out No longer eligible b ased on patient's age to complete this topic Varicella Vaccines Aged Out No longer eligible based on patient's age to complete this topic Procedures Procedure Name Priority Date/Time Associated Diagnosis Comments CBC WITH AUTO DIFFERENTIAL Routine 09/30/2025 7:27 AM EST Vitamin D deficiency, unspecified Deficiency of other specified B group vitamins Pure hypercholesterolemia, unspecified Type 2 diabetes mellitus without complications (CMS/HCC V24, CMS/HCC V28) Anemia, unspecified CBC AND DIFFERENTIAL Routine 09/30/2025 7:27 AM EST Vitamin D deficiency, unspecified Deficiency of other specified B group vitamins Pure hypercholesterolemia, unspecified Type 2 diabetes mellitus without complications (CMS/HCC V24, CMS/HCC V28) Anemia, unspecified LIPID PANEL WITH REFLEX TO DIRECT LDL Routine 09/30/2025 7:27 AM EST Vitamin D deficiency, unspecified Deficiency of other specified B group vitamins Pure hypercholesterolemia, unspecified Type 2 diabetes mellitus without complications (CMS/HCC V24, CMS/HCC V28) Anemia, unspecified HEMOGLOBIN A1C Routine 09/30/2025 7:27 AM EST Vitamin D deficiency, unspecified Deficiency of other specified B group vitamins Pure hypercholesterolemia, unspecified Type 2 diabetes mellitus without complications (CMS/HCC V24, CMS/HCC V28) Anemia, unspecified COMPREHENSIVE METABOLIC PANEL Routine 09/30/2025 7:27 AM EST Vitamin D deficiency, unspecified Deficiency of other specified B group vitamins Pure hypercholesterolemia, unspecified Type 2 diabetes mellitus without complications ([facility] V24, CMS/[facility] V28) Anemia, unspecified THYROXINE FREE Routine 09/30/2025 7:27 AM EST Vitamin D deficiency, unspecified Deficiency of other specified B group vitamins Pure hypercholesterolemia, unspecified Type 2 diabetes mellitus without complications (CMS/[facility] V24, CMS/[facility] V28) Anemia, unspecified THYROID STIMULATING HORMONE Routine 09/30/2025 7:27 AM EST Vitamin D deficiency, unspecified Deficiency of other specified B group vitamins Pure hypercholesterolemia, unspecified Type 2 diabetes mellitus without complications (CMS/HCC V24, CMS/[facility] V28) Anemia, unspecified VITAMIN B12 AND FOLATE Routine 09/30/2025 7:27 AM EST Vitamin D deficiency, unspecified Deficiency of other specified B group vitamins Pure hypercholesterolemia, unspecified Type 2 diabetes mellitus without complications (CMS/HCC V24, CMS/[facility] V28) Anemia, unspecified VITAMIN D 25 HYDROXY Routine 09/30/2025 7:27 AM EST Vitamin D deficiency, unspecified Deficiency of other specified B group vitamins Pure hypercholesterolemia, unspecified Type 2 diabetes mellitus without complications ([facility] V24, CMS/[facility] V28) Anemia, unspecified from Last 3 Months Results * Vitamin B12 and folate (09/30/2025 7:27 AM EST) [facility] Signature Vitamin B-12 299 211 - 911 pcg/mL 09/30/2025 10:35 AM EST [facility] Folate 8.1 >=5.4 ng/ml 09/30/2025 10:35 AM EST [facility] Comment:Over the counter sup plements containing high doses of biotin may interfere with this assay. If interference is suspected, patients shoud be retested after refraining from biotin supplements for 72 hours. Blood Venous blood specimen / Unknown Venipuncture / Unknown 09/30/2025 7:27 AM EST 09/30/2025 8:50 AM EST us Weston Gordon MD LAB BLOOD ORDERABLES Final R esult [facility] [address] [place] [address], [place] [phone] * (ABNORMAL) Lipid panel with reflex to direct LDL (09/30/2025 7:27 AM EST) Cholesterol 205(H) 0 - 200 mg/dL 09/30/2025 10:37 AM EST [facility] Triglycerides 273(H) 0 - 150 mg/dL 09/30/2025 10:37 AM [facility] HDL 51 >=40 mg/dL 09/30/2025 10:37 AM [facility] LDL Calculated 99 0 - 100 mg/dL 09/30/2025 10:37 AM EST [facility] Comment:Estimated LDL Calcul ated using equation: Total cholesterol - HDL cholesterol - (Triglycerides/5) VLDL Cholesterol [place] 54.6 mg/dL 09/30/2025 10:37 AM [facility] Non HDL Chol. (LDL+VLDL) 154(H) <145 mg/dL 09/30/2025 10:37 AM [facility] Chol/HDL Ratio 4.0 0.0 - 4.4 09/30/2025 10:37 AM [facility] Blood Venous blood specimen / Unknown Venipuncture / Unknown 09/30/2025 7:27 AM EST 09/30/2025 8:50 AM EST us Weston Gordon MD LAB BLOOD ORDERABLES Final R esult [facility] [address] [place] [address], [place] [phone] * (ABNORMAL) CBC auto differential (09/30/2025 7:27 AM EST) [facility] WBC 10.2 4.8 - 10.8 K/mcL LAB HEMETOLOGY METHOD 09/30/2025 9:32 AM [facility] RBC 4.80 3.80 - 4.80 M/mcL LAB HEMETOLOGY METHOD 09/30/2025 9:32 AM [facility] Hemoglobin 13.6 11.5 - 16.0 g/dL LAB HEMETOLOGY METHOD 09/30/2025 9:32 AM [facility] Hematocrit 41.6 35.0 - 47.0 % LAB HEMETOLOGY METHOD 09/30/2025 9:32 AM [facility] MCV 86.7 79.0 - 98.0 FL LAB HEMETOLOGY METHOD 09/30/2025 9:32 AM [facility] MCH 28.3 27.0 - 32.0 pcg LAB HEMETOLOGY METHOD 09/30/2025 9:32 AM [facility] MCHC 32.7 32.0 - 37.0 g/dL LAB HEMETOLOGY METHOD 09/30/2025 9:32 AM [facility] RDW 14.4 11.0 - 15.0 % LAB HEMETOLOGY METHOD 09/30/2025 9:32 AM [facility] Platelets 279 130 - 400 K/mcL LAB HEMETOLOGY METHOD 09/30/2025 9:32 AM [facility] MPV 11.1(H) 7.0 - 11.0 FL LAB HEMETOLOGY METHOD 09/30/2025 9:32 AM [facility] NRBC 0.0 <1.0 % LAB HEMETOLOGY METHOD 09/30/2025 9:32 AM [facility] NRBC Absolute 0.00 <0.10 K/mcL LAB HEMETOLOGY METHOD 09/30/2025 9:32 AM [facility] Neutrophils Relative 44.5 % LAB HEMETOLOGY METHOD 09/30/2025 9:32 AM [facility] Lymphocytes Relative 45.0 % LAB HEMETOLOGY METHOD 09/30/2025 9:32 AM [facility] Monocytes Relative 7.7 % LAB HEMETOLOGY METHOD 09/30/2025 9:32 AM [facility] Eosinophils Relative 2.1 % LAB HEMETOLOGY METHOD 09/30/2025 9:32 AM [facility] Basophils Relative 0.4 % LAB HEMETOLOGY METHOD 09/30/2025 9:32 AM [facility] Immature Granulocytes Relative 0.3 % LAB HEMETOLOGY METHOD 09/30/2025 9:32 AM [facility] Neutrophils Absolute 4.54 1.50 - 7.00 K/[facility] LAB HEMETOLOGY METHOD 09/30/2025 9:32 AM [facility] Lymphocytes Absolute 4.59 1.00 - 5.00 K/[facility] LAB HEMETOLOGY METHOD 09/30/2025 9:32 AM [facility] Monocytes Absolute 0.79 0.20 - 1.00 K/[facility] LAB HEMETOLOGY METHOD 09/30/2025 9:32 AM [facility] Eosinophils Absolute 0.21 0.00 - 0.50 K/[facility] LAB HEMETOLOGY METHOD 09/30/2025 9:32 AM [facility] Basophils Absolute 0.04 0.00 - 0.20 K/[facility] LAB HEMETOLOGY METHOD 09/30/2025 9:32 AM [facility] Immature Granulocytes Absolute 0.03 0.00 - 0.03 K/[facility] LAB HEMETOLOGY METHOD 09/30/2025 9:32 AM [facility] Blood Venous blood specimen / Unknown Venipuncture / Unknown 09/30/2025 7:27 AM EST 09/30/2025 8:50 AM EST us Weston Gordon MD LAB BLOOD ORDERABLES Final R esult Performing Organization Address City/[facility]/ZIP Co de Phone Number [facility] [address] [place] [address], [place] [phone] * Vitamin D 25 hydroxy (09/30/2025 7:27 AM EST) Vit D, 25-Hydroxy 39.0 30.0 - 80.0 ng/mL 09/30/2025 10:34 AM EST [facility] Blood Venous blood specimen / Unknown Venipuncture / Unknown 09/30/2025 7:27 AM EST 09/30/2025 8:50 AM EST Weston Gordon MD LAB BLOOD ORDERABLES Final R esult Performing Organization Address [facility]/ZIP Co de Phone Number [facility] [address] [place] [address], [place] [phone] * Thyroid stimulating hormone (09/30/2025 7:27 AM EST) Pathologist [facility] TSH 2.58 0.40 - 4.00 mcIU/mL 09/30/2025 10:34 AM EST [facility] Blood Venous blood specimen / Unknown Venipuncture / Unknown 09/30/2025 7:27 AM EST 09/30/2025 8:50 AM EST us Weston Gordon MD LAB BLOOD ORDERABLES Final R esult [facility] [address] [place] [address], [place] [phone] * Thyroxine free (09/30/2025 7:27 AM EST) Free T4 1.02 0.70 - 1.80 ng/dL 09/30/2025 10:35 AM EST [facility] Blood Venous blood specimen / Unknown Venipuncture / Unknown 09/30/2025 7:27 AM EST 09/30/2025 8:50 AM EST Weston Gordon MD LAB BLOOD ORDERABLES Final R esult Performing Organization Address City/[facility]/ZIP Co de Phone Number [facility] [address] [place] [address], [place] [phone] * (ABNORMAL) Hemoglobin A1c (09/30/2025 7:27 AM EST) [facility] Hemoglobin A1C 6.8(H) <6.5 % LAB CHEMISTRY METHOD 09/30/2025 10:50 AM EST [facility] Mean Bld Glu Estim. 148 mg/dL LAB CHEMISTRY METHOD 09/30/2025 10:50 AM EST [facility] Blood Venous blood specimen / Unknown Venipuncture / Unknown 09/30/2025 7:27 AM EST 09/30/2025 8:50 AM EST us Weston Gordon MD LAB BLOOD ORDERABLES Final R esult Performing Organization Address City/[facility]/ZIP Co de Phone Number [facility] [address] [place] [address], [place] [phone] * (ABNORMAL) Comprehensive metabolic panel (09/30/2025 7:27 AM EST) [facility] Sodium 141 133 - 145 mmol/L 09/30/2025 10:37 AM EST [facility] Potassium 4.5 3.5 - 5.5 mmol/L 09/30/2025 10:37 AM EST [facility] Chloride 105 96 - 110 mmol/L 09/30/2025 10:37 AM EST [facility] CO2 25 21 - 32 mmol/L 09/30/2025 10:37 AM [facility] Anion Gap 11 3 - 11 09/30/2025 10:37 AM [facility] Glucose 110(H) 70 - 100 mg/dL 09/30/2025 10:37 AM [facility] BUN 24 5 - 25 mg/dL 09/30/2025 10:37 AM [facility] Creatinine 1.00 0.50 - 1.10 mg/dL 09/30/2025 10:37 AM [facility] eGFR 55(L) >=60 mL/min/1. 73m2 09/30/2025 10:37 AM [facility] Comment:Calculation based on the Chronic Kidney Disease Epidemiology Collaboration (CKD-EPI) equation refit without adjustment for race. BUN/Creatinine Ratio 24.0 09/30/2025 10:37 AM [facility] Calcium 8.3(L) 8.5 - 10.5 mg/dL 09/30/2025 10:37 AM [facility] AST (SGOT) 24 10 - 42 unit/L 09/30/2025 10:37 AM [facility] ALT (SGPT) 20 10 - 60 unit/L 09/30/2025 10:37 AM [facility] Alkaline Phosphatase 40(L) 42 - 121 unit/L 09/30/2025 10:37 AM [facility] Total Protein 7.1 6.0 - 8.0 g/dL 09/30/2025 10:37 AM [facility] Albumin 3.7 3.2 - 5.0 g/dL 09/30/2025 10:37 AM [facility] Total Bilirubin 0.4 0.0 - 1.4 mg/dL 09/30/2025 10:37 AM [facility] Blood Venous blood specimen / Unknown Venipuncture / Unknown 09/30/2025 7:27 AM EST 09/30/2025 8:50 AM EST Weston Gordon MD LAB BLOOD ORDERABLES Final R esult [facility] [address] [place] [address], from Last 3 Months Insurance MEDICARE Care Teams Welfare Supervisor Relationship Specialty Start Date End Date Physician, No Pcp PCP - General 09/30/25
--- OUTSIDE RECORDS SUMMARY | 2025-10-05 17:38 | XMS_ITS | Encounter Summary ---
Author Organization [facility] Address [address] [place] [address] Care Team Providers Care Rocket Test Fire Worker Name Role Phone Physician, No Pcp Primary Care Provider Unavaila ble Encounter Details Date Type Department Care Team (Late st Contact Info) Description 09/30/2025 Lab Requisition [facility] - Main Lab [address] [facility] [place] [address] Weston Gordon MD [address] [place] [address] [place] [address] Vitamin D deficiency, unspecified; Deficiency of other specified B group vitamins; Pure hypercholesterolemia, unspecified; Type 2 diabetes mellitus without complications (CMS/HCC V24, CMS/HCC V28); Anemia, unspecified Social History Tobacco Use Types Packs/Day Years Used Date Smoking Tobacco: Never Assessed Comments Unknown Sex and Gender Information Value Date Recorded Sex Assigned at Not on file Legal Sex Female 9:59 PM EST Gender Identity Not on file Sexual Orientation Not on file documented as of this encounter Plan of Treatment Not on file documented as of this encounter Procedures Procedure Name Priority Date/Time Associated Diagnosis Comments VITAMIN B12 AND FOLATE Routine 09/30/2025 7:27 [...] (CMS/HCC V24, CMS/HCC V28) Anemia, unspecified CBC WITH AUTO DIFFERENTIAL Routine 09/30/2025 7:27 AM EST Vitamin D deficiency, unspecified Deficiency of other specified B group vitamins Pure hypercholesterolemia, unspecified Type 2 diabetes mellitus without complications ([facility] V24, CMS/[facility] V28) Anemia, unspecified VITAMIN D 25 HYDROXY Routine 09/30/2025 7:27 AM EST Vitamin D deficiency, unspecified Deficiency of other specified B group vitamins Pure hypercholesterolemia, unspecified Type 2 diabetes mellitus without complications ([facility] V24, CMS/[facility] V28) Anemia, unspecified CBC AND DIFFERENTIAL Routine 09/30/2025 7:27 AM EST Vitamin D deficiency, unspecified Deficiency of other specified B group vitamins Pure hypercholesterolemia, unspecified Type 2 diabetes mellitus without complications ([facility]/HCC V24, CMS/[facility] V28) Anemia, unspecified THYROID STIMULATING HORMONE Routine 09/30/2025 7:27 AM EST Vitamin D deficiency, unspecified Deficiency of other specified B group vitamins Pure hypercholesterolemia, unspecified Type 2 diabetes mellitus without complications ([facility] V24, CMS/[facility] V28) Anemia, unspecified THYROXINE FREE Routine 09/30/2025 7:27 AM EST Vitamin D deficiency, unspecified Deficiency of other specified B group vitamins Pure hypercholesterolemia, unspecified Type 2 diabetes mellitus without complications ([facility] V24, CMS/[facility] V28) Anemia, unspecified HEMOGLOBIN A1C Routine 09/30/2025 7:27 AM EST Vitamin D deficiency, unspecified Deficiency of other specified B group vitamins Pure hypercholesterolemia, unspecified Type 2 diabetes mellitus without complications ([facility] V24, CMS/[facility] V28) Anemia, unspecified COMPREHENSIVE METABOLIC PANEL Routine 09/30/2025 7:27 AM EST Vitamin D deficiency, unspecified Deficiency of other specified B group vitamins Pure hypercholesterolemia, unspecified Type 2 diabetes mellitus without complications ([facility] V24, CMS/HCC V28) Anemia, unspecified documented in this encounter Results * (ABNORMAL) CBC auto differential (09/30/2025 7:27 AM EST) WBC 10.2 4.8 - 10.8 K/[facility] LAB HEMETOLOGY METHOD 09/30/2025 9:32 AM [facility] RBC 4.80 3.80 - 4.80 M/mcL LAB HEMETOLOGY METHOD 09/30/2025 9:32 AM [facility] Hemoglobin 13.6 11.5 - 16.0 g/dL LAB HEMETOLOGY METHOD 09/30/2025 9:32 AM [facility] Hematocrit 41.6 35.0 - 47.0 % LAB HEMETOLOGY METHOD 09/30/2025 9:32 AM [facility] MCV 86.7 79.0 - 98.0 FL LAB HEMETOLOGY METHOD 09/30/2025 9:32 AM [facility] MCH 28.3 27.0 - 32.0 pcg LAB HEMETOLOGY METHOD 09/30/2025 9:32 AM [facility] MCHC 32.7 32.0 - 37.0 g/dL LAB HEMETOLOGY METHOD 09/30/2025 9:32 AM [facility] RDW 14.4 11.0 - 15.0 % LAB HEMETOLOGY METHOD 09/30/2025 9:32 AM [facility] Platelets 279 130 - 400 K/mcL LAB HEMETOLOGY METHOD 09/30/2025 9:32 AM [facility] MPV 11.1(H) 7.0 - 11.0 FL LAB HEMETOLOGY METHOD 09/30/2025 9:32 AM [facility] NRBC 0.0 <1.0 % LAB HEMETOLOGY METHOD 09/30/2025 9:32 AM [facility] NRBC Absolute 0.00 <0.10 K/mcL LAB HEMETOLOGY METHOD 09/30/2025 9:32 AM [facility] Neutrophils Relative 44.5 % LAB HEMETOLOGY METHOD 09/30/2025 9:32 AM [facility] Lymphocytes Relative 45.0 % LAB HEMETOLOGY METHOD 09/30/2025 9:32 AM [facility] Monocytes Relative 7.7 % LAB HEMETOLOGY METHOD 09/30/2025 9:32 AM [facility] Eosinophils Relative 2.1 % LAB HEMETOLOGY METHOD 09/30/2025 9:32 AM [facility] Basophils Relative 0.4 % LAB HEMETOLOGY METHOD 09/30/2025 9:32 AM [facility] Immature Granulocytes Relative 0.3 % LAB HEMETOLOGY METHOD 09/30/2025 9:32 AM [facility] Neutrophils Absolute 4.54 1.50 - 7.00 K/mcL LAB HEMETOLOGY METHOD 09/30/2025 9:32 AM [facility] Lymphocytes Absolute 4.59 1.00 - 5.00 K/mcL LAB HEMETOLOGY METHOD 09/30/2025 9:32 AM [facility] Monocytes Absolute 0.79 0.20 - 1.00 K/mcL LAB HEMETOLOGY METHOD 09/30/2025 9:32 AM [facility] Eosinophils Absolute 0.21 0.00 - 0.50 K/mcL LAB HEMETOLOGY METHOD 09/30/2025 9:32 AM [facility] Basophils Absolute 0.04 0.00 - 0.20 K/mcL LAB HEMETOLOGY METHOD 09/30/2025 9:32 AM [facility] Immature Granulocytes Absolute 0.03 0.00 - 0.03 K/mcL LAB HEMETOLOGY METHOD 09/30/2025 9:32 AM [facility] Blood Venous blood specimen / Unknown Venipuncture / Unknown 09/30/2025 7:27 AM EST 09/30/2025 8:50 AM EST Westno Gordon MD LAB BLOOD ORDERABLES Final R esult [facility] [address] [place] [address], * (ABNORMAL) Lipid panel with reflex to direct LDL (09/30/2025 7:27 AM EST) Cholesterol 205(H) 0 - 200 mg/dL 09/30/2025 10:37 AM EST [facility] Triglycerides 273(H) 0 - 150 mg/dL 09/30/2025 10:37 AM EST [facility] HDL 51 >=40 mg/dL 09/30/2025 10:37 AM [facility] LDL Calculated 99 0 - 100 mg/dL 09/30/2025 10:37 AM [facility] Comment:Estimated LDL Calcul ated using equation: Total cholesterol - HDL cholesterol - (Triglycerides/5) VLDL Cholesterol [place] 54.6 mg/dL 09/30/2025 10:37 AM [facility] Non HDL Chol. (LDL+VLDL) 154(H) <145 mg/dL 09/30/2025 10:37 AM [facility] Chol/HDL Ratio 4.0 0.0 - 4.4 09/30/2025 10:37 AM [facility] Blood Venous blood specimen / Unknown Venipuncture / Unknown 09/30/2025 7:27 AM EST 09/30/2025 8:50 AM EST Weston Gordon MD LAB BLOOD ORDERABLES Final R esult [facility] [address] [place] [address], [place] [phone] * (ABNORMAL) Hemoglobin A1c (09/30/2025 7:27 AM EST) Hemoglobin A1C 6.8(H) <6.5 % LAB CHEMISTRY METHOD 09/30/2025 10:50 AM [facility] Mean Bld Glu Estim. 148 mg/dL LAB CHEMISTRY METHOD 09/30/2025 10:50 AM [facility] Blood Venous blood specimen / Unknown Venipuncture / Unknown 09/30/2025 7:27 AM EST 09/30/2025 8:50 AM EST us Weston Gordon MD LAB BLOOD ORDERABLES Final R esult [facility] [address] [place] [address], * (ABNORMAL) Comprehensive metabolic panel (09/30/2025 7:27 AM EST) Sodium 141 133 - 145 mmol/L 09/30/2025 10:37 AM [facility] Potassium 4.5 3.5 - 5.5 mmol/L 09/30/2025 10:37 AM [facility] Chloride 105 96 - 110 mmol/L 09/30/2025 10:37 AM [facility] CO2 25 21 - 32 mmol/L 09/30/2025 10:37 AM [facility] Anion Gap 11 3 - 11 09/30/2025 10:37 AM [facility] Glucose 110(H) 70 - 100 mg/dL 09/30/2025 10:37 AM [facility] BUN 24 5 - 25 mg/dL 09/30/2025 10:37 AM [facility] Creatinine 1.00 0.50 - 1.10 mg/dL 09/30/2025 10:37 AM [facility] eGFR 55(L) >=60 mL/min/1. 73m2 09/30/2025 10:37 AM [facility] Comment:Calculation based on the Chronic Kidney Disease Epidemiology Collaboration (CKD-EPI) equation refit without adjustment for race. BUN/Creatinine Ratio 24.0 09/30/2025 10:37 AM [facility] Calcium 8.3(L) 8.5 - 10.5 mg/dL 09/30/2025 10:37 AM [facility] AST (SGOT) 24 10 - 42 unit/L 09/30/2025 10:37 AM [facility] ALT (SGPT) 20 10 - 60 unit/L 09/30/2025 10:37 AM [facility] Alkaline Phosphatase 40(L) 42 - 121 unit/L 09/30/2025 10:37 AM [facility] Total Protein 7.1 6.0 - 8.0 g/dL 09/30/2025 10:37 AM [facility] Albumin 3.7 3.2 - 5.0 g/dL 09/30/2025 10:37 AM [facility] Total Bilirubin 0.4 0.0 - 1.4 mg/dL 09/30/2025 10:37 AM [facility] Blood Venous blood specimen / Unknown Venipuncture / Unknown 09/30/2025 7:27 AM EST 09/30/2025 8:50 AM EST us Weston Gordon MD LAB BLOOD ORDERABLES Final R esult [facility] [address] [place] [address], * Thyroxine free (09/30/2025 7:27 AM EST) Free T4 1.02 0.70 - 1.80 ng/dL 09/30/2025 10:35 AM [facility] Blood Venous blood specimen / Unknown Venipuncture / Unknown 09/30/2025 7:27 AM EST 09/30/2025 8:50 AM EST us Weston Gordon MD LAB BLOOD ORDERABLES Final R esult Performing Organization Address City/[facility]/ZIP Co de Phone Number [facility] [address] [place] [address], [place] [phone] * Thyroid stimulating hormone (09/30/2025 7:27 AM EST) TSH 2.58 0.40 - 4.00 mcIU/mL 09/30/2025 10:34 AM EST [facility] Blood Venous blood specimen / Unknown Venipuncture / Unknown 09/30/2025 7:27 AM EST 09/30/2025 8:50 AM EST Weston Gordon MD LAB BLOOD ORDERABLES Final R esult Performing Organization Address [facility]/[place] de Phone Number [facility] [address] [place] [address], [place] [phone] * Vitamin B12 and folate (09/30/2025 7:27 AM EST) [facility] Vitamin B-12 299 211 - 911 pcg/mL 09/30/2025 10:35 AM EST [facility] Folate 8.1 >=5.4 ng/ml 09/30/2025 10:35 AM EST [facility] Comment:Over the counter sup plements containing high doses of biotin may interfere with this assay. If interference is suspected, patients shoud be retested after refraining from biotin supplements for 72 hours. Blood Venous blood specimen / Unknown Venipuncture / Unknown 09/30/2025 7:27 AM EST 09/30/2025 8:50 AM EST us Weston Gordon MD LAB BLOOD ORDERABLES Final R esult [facility] [address] [place] [address], [place] [phone] * Vitamin D 25 hydroxy (09/30/2025 7:27 AM EST) Vit D, 25-Hydroxy 39.0 30.0 - 80.0 ng/mL 09/30/2025 10:34 AM EST [facility] Blood Venous blood specimen / Unknown Venipuncture / Unknown 09/30/2025 7:27 AM EST 09/30/2025 8:50 AM EST Weston Gordon MD LAB BLOOD ORDERABLES Final R esult Performing Organization Address [facility] Co de Phone Number [facility] [address] [place] [address], [place] [phone] documented in this encounter Visit Diagnoses Diagnosis Vitamin D deficiency, unspecified Deficiency of other specified B group vitamins Pure hypercholesterolemia, unspecified Type 2 diabetes mellitus without complications (CMS/HCC V24, CMS/HCC V28) Anemia, unspecified documented in this encounter Care Teams Rocket Test Fire Worker Relationship Specialty Start Date End Date Physician, No Pcp PCP - General 09/30/25 documented as of this encounter
== END 2025-10-05 15:18 | disposition home or self-care (01) ==
LOC: HO.HMCH 14:15
PROVIDERS: PCP Internal Medicine
DX: E11.9 Type 2 diabetes mellitus without complications (principal); I10 Essential (primary) hypertension; E66.9 Obesity, unspecified; Z68.30 Body mass index [BMI] 30.0-30.9, adult; E78.2 Mixed hyperlipidemia; K58.9 Irritable bowel syndrome, unspecified; M17.11 Unilateral primary osteoarthritis, right knee; M19.072 Primary osteoarthritis, left ankle and foot; M25.551 Pain in right hip; M54.9 Dorsalgia, unspecified; M79.604 Pain in right leg

== ENCOUNTER → 2025-10-05 14:15 | Outpatient (BNVA) | payer MEDICARE, OTHER, SELFPAY | PROVIDERS: PCP Internal Medicine | DX: I10 Essential (primary) hypertension (principal); E78.2 Mixed hyperlipidemia; E11.9 Type 2 diabetes mellitus without complications; E66.9 Obesity, unspecified; Z68.30 Body mass index [BMI] 30.0-30.9, adult; M17.11 Unilateral primary osteoarthritis, right knee; K58.9 Irritable bowel syndrome, unspecified; M19.072 Primary osteoarthritis, left ankle and foot; M54.9 Dorsalgia, unspecified; M79.604 Pain in right leg; Z71.3 Dietary counseling and surveillance | CPT/HCPCS: 99212 ==